=== PATIENT | male | born 1935 | race Caucasian/White ===

== ENCOUNTER 2016-09-03 10:48 | Emergency (ER) | payer OTHER, BC ==
[~2016-09-03 10:48] MED LIST: AMOXICILLIN/CL875 MG PO; COMBIVENT RESPIMAT; FOLIC ACID1 MG PO; HYCET1 ML PO; IPRATROPIUM BROMIDE/ IN; METOPROLOL TART25 MG PO; MULTIVITAMIN1 TAB PO; PRILOSEC20 MG PO; QVAR40 MCG IN; SLOW-MAG PO; VITAMIN B-1100 M1 PO; [UNRECOGNIZED DRUG - OTHER] PO
--- NOTE | 2016-09-03 12:12 | ED NURSING NOTES ---
Clinical Report - Nurses [facility] [address] [place] [address] 09/03/2016 10:48 Patient: LUI SULLIVAN TRIAGE Triage time 10:50. Acuity: LEVEL 3. Chief Complaint: SHORTNESS OF BREATH and (02 dependant). Alert. No acute distress. SEPSIS SCREEN: Sepsis Screen: negative. Negative (no infection suspected/documented). KAUSHAL COMA SCORE: Kaushal Coma Scale: 14- eyes open spontaneously (4); best verbal response- disoriented (4); best motor response- obeys commands (6). --11:11 Hayley Osborne R.N. 10:59 09/03/16. BP: 154/78. HR: 81. RR: 20. O2 saturation: 99% on room air. Temp: 97.9 F. Pain level now: 0/10. --11:11 Hayley Osborne R.N. 10:59 09/03/16. BP: 154/78. HR: 81. RR: 20. O2 saturation: 99% on room air. Temp: 97.9 F. Pain level now: 0/10. --11:11 Hayley Osborne R.N. Weight: 72.5 kg estimated. Height/Length: 68 inches. BMI: 24.3. --11:05 Hayley Osborne R.N. Medications Albuterol Sulfate Inhalation 2 puffs, PRN. Alendronate Sodium Oral (Tablet 70 mg) 1 tablet, weekly. Combivent Respimat Inhalation 2 puffs , every 4 hrs PRN. Daughter repots - pt also on antibiotics and a med for diarrhea . Folic Acid Oral 1 mg, daily. Ipratropium-Albuterol Inhalation (Solution 0.5-2.5 (3) mg/3mL) 3ml, every 4 hrs PRN. Metoprolol Tartrate Oral 25 mg, 2 x day. --11:07 Hayley Osborne R.N. Multivitamin Oral 1 tab, daily. Omeprazole Oral 20 mg, daily. Qvar Inhalation (Aerosol Solution 40 mcg/act) 2 puffs , 2 x daily. Slow-Mag Oral 1 tab , 2 x daily. Vitamin B-1 Oral (Tablet 100 mg) 1 tablet, daily. --11:07 Hayley Osborne R.N. Acetaminophen Oral 1,000 mg, 4x a day as needed. --11:08 Hayley Osborne R.N. Bacid Oral 1 tab bid . --11:09 Hayley Osborne R.N. Vitamin B-1 day . --11:10 Hayley Osborne R.N. Aricept Oral 5 mg, daily. --11:11 Hayley Osborne R.N. Medication/allergy information source: the patient and patient's detention record. --11:11 Hayley Osborne R.N. Allergies Nitrofurantoin. --11:07 Hayley Osborne R.N. History Arrived by EMS. Historian: patient. Primary physician (nixon). This started just prior to arrival. Treatment GLOBAL MARKETING COORDINATOR: EMS treatment GLOBAL MARKETING COORDINATOR verbally communicated. See EMS report. Oxygen administered by nasal cannula and at 2 liters/minute. BP: 195 / 91 manual. HR: 81. RR: 20. Temp: 97.9 oral. O2 saturation: (at 2 liters/minute). End tidal CO2: 32 mm Hg. Upon arrival patient awake. PAST MEDICAL HX: Immunizations: up-to-date. SOCIAL HX: Smoker- current status unknown. No alcohol use or drug use. FALL RISK ASSESSMENT: Fall risk assessment completed. No fall risk identified. NUTRITIONAL RISK ASSESSMENT: The nutritional risk assessment revealed no deficiencies. FUNCTIONAL ASSESSMENT: Functional assessment performed: requires assistance with the activities of daily living; uses wheelchair and walker; wears glasses; cognitive impairment- senile dementia. The patient is under physician care for his functional impairment. LEARNING NEEDS ASSESSMENT: A learning needs assessment was performed. Factors affecting the patient's ability to learn include cognitive limitations. SKIN INTEGRITY ASSESSMENT: Skin integrity risk assessment completed. No skin integrity risk identified. --11:11 Hayley Osborne R.N. PROBLEMS: GI Bleeding. COPD - Chronic Obstructive Pulmonary Disease. Sinus Tachycardia. Alcohol Withdrawal. Pneumonia. Herpes Zoster. Vomiting. Dehydration. Hyperlipidemia. Cancer. Hypokalemia. Anemia. Pneumothorax. Abrasion(s). Hypertension. --11:03 Hayley Osborne R.N. ADDITIONAL SURGERIES: Adenoidectomy. Cataract Surgery. Prostatectomy. Radiation tx for lung . Tonsillectomy. TURP - Trans Urethral Resection of Prostate. --11:03 Hayley Osborne R.N. Interventions ID band on patient. To room. --11:11 Hayley Osborne R.N. PHYSICAL ASSESSMENT To room via stretcher. Patient gowned. GENERAL / NEURO / PSYCH: Alert. Appears in no acute distress. The patient is disoriented to time and situation. HEENT: Mucous membranes are pink. RESPIRATORY: Mild respiratory distress. The patient can speak in full sentences. CVS: Capillary refill less than 2 seconds. GI / : Abdomen nontender. SKIN: Skin is warm and dry. Normal skin turgor. --11:12 Hayley Osborne R.N. NURSING PROGRESS NOTES Pulse oximeter and NIBP monitor placed on patient; monitor alarms on. Patient gowned. Head of bed elevated. Two patient identifiers checked. Call light placed in reach. Side rails up x 2. Bed placed in lowest position. Brakes of bed on. Patient ready for evaluation. --11:12 Hayley Osborne R.N. 11:39 09/03/16. BP: 164/76 taken on the left arm, while sitting. HR: 80. RR: 20. O2 saturation: 99% on room air. --11:40 Hayley Osborne R.N. DISPOSITION / DISCHARGE 11:50. Condition at departure: improved. No learning barriers present. Discharge instructions provided and reviewed with the patient and family. Family verbalized understanding. Written instructions provided in Portuguese. The patient was discharged to the detention and accompanied by family. He left the Emergency Department in a wheelchair and via private vehicle. Family member driving. Medication list reviewed and validated. --14:06 Hayley Osborne R.N. 11:39 09/03/16. BP: 164/76 taken on the left arm, while sitting. HR: 80. RR: 20. O2 saturation: 99% on room air. 10:59 09/03/16. BP: 154/78. HR: 81. RR: 20. O2 saturation: 99% on room air. Temp: 97.9 F. Pain level now: 0/10. --14:06 Hayley Osborne R.N. Locked/Released at 09/03/2016 14:06 by Hayley Osborne R.N.
--- NOTE | 2016-09-03 12:12 | ED CLINICAL REPORT ---
Clinical Report - Physicians/Mid Levels [facility] [address] [place] [address] 09/03/2016 10:48 Patient: LUI SULLIVAN Time Seen: 10:59. Arrived- By ambulance. Historian- patient, EMS personnel and daughter. History limited by dementia. HISTORY OF PRESENT ILLNESS Chief Complaint: CHANGED MENTAL STATUS and CONFUSION. This started last night and is now gone. It was abrupt in onset and has been intermittent and waxing/waning. The patient has been confused. (the patient's daughter reports that he has a long-standing diagnosis of dementia. In the recent pastshe says that he becomes more confused at night frequently call her saying things such as "where is my car?" She says that he has not had a car in years. She feels that this has been getting worse recently. She says the [facility] that hewas doing this sort of thing last night. Apparently this morning he became very anxious and was breathing very fast and acting confused and they called for an ambulance. Both the patient and his daughter say that he is at his normal baseline. He says that he is feeling well he denies any pain, denies any changes in his breathing or any other concerns.). halfway resident. History of chronic dementia. No weakness, numbness or recent fall. No difficulty walking. The patient is usually alert but confused. Similar symptoms previously: Milder. REVIEW OF SYSTEMS No chills, fever, sweats, calf pain or chest pain. No cough, difficulty breathing, pedal edema, palpitations or abdominal pain. No constipation, diarrhea, nausea, vomiting or urinary problems. All systems otherwise negative, except as recorded above. PAST HISTORY ( PCP - [facility]). Problems: GI Bleeding. COPD - Chronic Obstructive Pulmonary Disease. Sinus Tachycardia. Alcohol Withdrawal. Pneumonia. Herpes Zoster. Vomiting. Dehydration. Hyperlipidemia. Cancer. Hypokalemia. Anemia. Pneumothorax. Abrasion(s). Hypertension. Additional Surgeries: Adenoidectomy. Cataract Surgery. Prostatectomy. Radiation tx for lung . Tonsillectomy. TURP - Trans Urethral Resection of Prostate. Medications: Aricept Oral 5 mg, daily. Vitamin B-1 day . Bacid Oral 1 tab bid . Acetaminophen Oral 1,000 mg, 4x a day as needed. Multivitamin Oral 1 tab, daily. Omeprazole Oral 20 mg, daily. Qvar Inhalation (Aerosol Solution 40 mcg/act) 2 puffs , 2 x daily. Slow-Mag Oral 1 tab , 2 x daily. Vitamin B-1 Oral (Tablet 100 mg) 1 tablet, daily. Albuterol Sulfate Inhalation 2 puffs, PRN. Alendronate Sodium Oral (Tablet 70 mg) 1 tablet, weekly. Combivent Respimat Inhalation 2 puffs , every 4 hrs PRN. Folic Acid Oral 1 mg, daily. Ipratropium-Albuterol Inhalation (Solution 0.5-2.5 (3) mg/3mL) 3ml, every 4 hrs PRN. Metoprolol Tartrate Oral 25 mg, 2 x day. Allergies: Nitrofurantoin. SOCIAL HISTORY Former smoker, end date 1996. No alcohol use or drug use. Resides in a fci. FAMILY HISTORY Denies family medical history. ADDITIONAL NOTES The nursing notes have been reviewed. PHYSICAL EXAM Vital Signs: 09/03/2016 10:59 BP: 154/78. HR: 81. RR: 20. O2 saturation: 99%. Temp: 97.9 F. Pain level now: 0/10. Have been reviewed. Appearance: Alert. No acute distress. He is disoriented and confused. Eyes: Pupils equal, round and reactive to light. ENT: Moist mucous membranes. Pharynx normal. Neck: Normal inspection. Neck supple. No meningeal signs or carotid bruit. (kyphotic). CVS: Normal heart rate and rhythm. Heart sounds normal. Respiratory: Decreased air movement. No rales, wheezes or rhonchi. Abdomen: Soft and nontender. No organomegaly. Back: (kyphotic). Skin: Skin warm and dry. Normal skin color. Normal skin turgor. Extremities: Extremities exhibit normal ROM. No calf tenderness. No lower extremity edema. Neuro: Alert. Mildly altered mental status: confused and disoriented to place and time. Eyes open spontaneously. Best verbal response: disoriented. Best motor response: obeys commands. The patient is disoriented. Mood/affect normal. Speech normal. No motor deficit. No sensory deficit. PROGRESS AND PROCEDURES Course of Care: Patient is stable. Patient/family counseled. Old medical records reviewed. Disposition: Discharged. Condition: stable. CLINICAL IMPRESSION Chronic dementia with behavioral disturbance. Anxiety reaction. INSTRUCTIONS (Talk with Dr. Segura about long-term plans regarding the management of Mister Sullivan's "sundowning" as discussed.). Warnings: Further evaluation is necessary. GENERAL WARNINGS: Return or contact your physician immediately if your condition worsens or changes unexpectedly, if not improving as expected, or if other problems arise. Your Current Medications: CONTINUE TAKING THE FOLLOWING MEDICATIONS: Acetaminophen Oral : 1,000 mg 4x a day, prn. Albuterol Sulfate Inhalation : 2 puffs PRN. Alendronate Sodium Oral : Tablet 70 mg, 1 tablet weekly. Aricept Oral : 5 mg daily. Bacid Oral : 1 tab bid. Combivent Respimat Inhalation : 2 puffs every 4 hrs PRN. Folic Acid Oral : 1 mg daily. Ipratropium-Albuterol Inhalation : Solution 0.5-2.5 (3) mg/3mL, 3ml every 4 hrs PRN. Metoprolol Tartrate Oral : 25 mg 2 x day. Multivitamin Oral : 1 tab daily. Omeprazole Oral : 20 mg daily. Qvar Inhalation : Aerosol Solution 40 mcg/act, 2 puffs 2 x daily. Slow-Mag Oral : 1 tab 2 x daily. Vitamin B-1 day *. Vitamin B-1 Oral : Tablet 100 mg, 1 tablet daily. Understanding of the discharge instructions verbalized by family. Follow-up with: Farooq Segura MD, [facility], , [address] [place] [address] Follow up in seven days. Call for an appointment. (Electronically signed by Davy Nicole MD 09/03/2016 15:02)
--- NOTE | 2016-09-03 12:12 | ED NURSING NOTES ---
Clinical Report - Nurses [facility] [address] [place] [address] 09/03/2016 10:48 Patient: LUI SULLIVAN TRIAGE Triage time 10:50. Acuity: LEVEL 3. Chief Complaint: SHORTNESS OF BREATH and (02 dependant). Alert. No acute distress. SEPSIS SCREEN: Sepsis Screen: negative. Negative (no infection suspected/documented). KAUSHAL COMA SCORE: Kaushal Coma Scale: 14- eyes open spontaneously (4); best verbal response- disoriented (4); best motor response- obeys commands (6). --11:11 Hayley Osborne R.N. 10:59 09/03/16. BP: 154/78. HR: 81. RR: 20. O2 saturation: 99% on room air. Temp: 97.9 F. Pain level now: 0/10. --11:11 Hayley Osborne R.N. 10:59 09/03/16. BP: 154/78. HR: 81. RR: 20. O2 saturation: 99% on room air. Temp: 97.9 F. Pain level now: 0/10. --11:11 Hayley Osborne R.N. Weight: 72.5 kg estimated. Height/Length: 68 inches. BMI: 24.3. --11:05 Hayley Osborne R.N. Medications Albuterol Sulfate Inhalation 2 puffs, PRN. Alendronate Sodium Oral (Tablet 70 mg) 1 tablet, weekly. Combivent Respimat Inhalation 2 puffs , every 4 hrs PRN. Daughter repots - pt also on antibiotics and a med for diarrhea . Folic Acid Oral 1 mg, daily. Ipratropium-Albuterol Inhalation (Solution 0.5-2.5 (3) mg/3mL) 3ml, every 4 hrs PRN. Metoprolol Tartrate Oral 25 mg, 2 x day. --11:07 Hayley Osborne R.N. Multivitamin Oral 1 tab, daily. Omeprazole Oral 20 mg, daily. Qvar Inhalation (Aerosol Solution 40 mcg/act) 2 puffs , 2 x daily. Slow-Mag Oral 1 tab , 2 x daily. Vitamin B-1 Oral (Tablet 100 mg) 1 tablet, daily. --11:07 Hayley Osborne R.N. Acetaminophen Oral 1,000 mg, 4x a day as needed. --11:08 Hayley Osborne R.N. Bacid Oral 1 tab bid . --11:09 Hayley Osborne R.N. Vitamin B-1 day . --11:10 Hayley Osborne R.N. Aricept Oral 5 mg, daily. --11:11 Hayley Osborne R.N. Medication/allergy information source: the patient and patient's jail record. --11:11 Hayley Osborne R.N. Allergies Nitrofurantoin. --11:07 Hayley Osborne R.N. History Arrived by EMS. Historian: patient. Primary physician (nixon). This started just prior to arrival. Treatment SALESPERSON BURIAL NEEDS: EMS treatment SALESPERSON BURIAL NEEDS verbally communicated. See EMS report. Oxygen administered by nasal cannula and at 2 liters/minute. BP: 195 / 91 manual. HR: 81. RR: 20. Temp: 97.9 oral. O2 saturation: (at 2 liters/minute). End tidal CO2: 32 mm Hg. Upon arrival patient awake. PAST MEDICAL HX: Immunizations: up-to-date. SOCIAL HX: Smoker- current status unknown. No alcohol use or drug use. FALL RISK ASSESSMENT: Fall risk assessment completed. No fall risk identified. NUTRITIONAL RISK ASSESSMENT: The nutritional risk assessment revealed no deficiencies. FUNCTIONAL ASSESSMENT: Functional assessment performed: requires assistance with the activities of daily living; uses wheelchair and walker; wears glasses; cognitive impairment- senile dementia. The patient is under physician care for his functional impairment. LEARNING NEEDS ASSESSMENT: A learning needs assessment was performed. Factors affecting the patient's ability to learn include cognitive limitations. SKIN INTEGRITY ASSESSMENT: Skin integrity risk assessment completed. No skin integrity risk identified. --11:11 Hayley Osborne R.N. PROBLEMS: GI Bleeding. COPD - Chronic Obstructive Pulmonary Disease. Sinus Tachycardia. Alcohol Withdrawal. Pneumonia. Herpes Zoster. Vomiting. Dehydration. Hyperlipidemia. Cancer. Hypokalemia. Anemia. Pneumothorax. Abrasion(s). Hypertension. --11:03 Hayley Osborne R.N. ADDITIONAL SURGERIES: Adenoidectomy. Cataract Surgery. Prostatectomy. Radiation tx for lung . Tonsillectomy. TURP - Trans Urethral Resection of Prostate. --11:03 Hayley Osborne R.N. Interventions ID band on patient. To room. --11:11 Hayley Osborne R.N. PHYSICAL ASSESSMENT To room via stretcher. Patient gowned. GENERAL / NEURO / PSYCH: Alert. Appears in no acute distress. The patient is disoriented to time and situation. HEENT: Mucous membranes are pink. RESPIRATORY: Mild respiratory distress. The patient can speak in full sentences. CVS: Capillary refill less than 2 seconds. GI / : Abdomen nontender. SKIN: Skin is warm and dry. Normal skin turgor. --11:12 Hayley Osborne R.N. NURSING PROGRESS NOTES Pulse oximeter and NIBP monitor placed on patient; monitor alarms on. Patient gowned. Head of bed elevated. Two patient identifiers checked. Call light placed in reach. Side rails up x 2. Bed placed in lowest position. Brakes of bed on. Patient ready for evaluation. --11:12 Hayley Osborne R.N. 11:39 09/03/16. BP: 164/76 taken on the left arm, while sitting. HR: 80. RR: 20. O2 saturation: 99% on room air. --11:40 Hayley Osborne R.N. DISPOSITION / DISCHARGE 11:50. Condition at departure: improved. No learning barriers present. Discharge instructions provided and reviewed with the patient and family. Family verbalized understanding. Written instructions provided in Portuguese. The [facility] and accompanied by family. He left the Emergency Department in a wheelchair and via private vehicle. Family member driving. Medication list reviewed and validated. --14:06 Hayley Osborne R.N. 11:39 09/03/16. BP: 164/76 taken on the left arm, while sitting. HR: 80. RR: 20. O2 saturation: 99% on room air. 10:59 09/03/16. BP: 154/78. HR: 81. RR: 20. O2 saturation: 99% on room air. Temp: 97.9 F. Pain level now: 0/10. --14:06 Hayley Osborne R.N. Locked/Released at 09/03/2016 14:06 by Hayley Osborne R.N.
--- NOTE | 2016-09-03 12:12 | ED CLINICAL REPORT ---
Clinical Report - Physicians/Mid Levels [facility] [address] [place] [address] 09/03/2016 10:48 Patient: LUI SULLIVAN Time Seen: 10:59. Arrived- By ambulance. Historian- patient, EMS personnel and daughter. History limited by dementia. HISTORY OF PRESENT ILLNESS Chief Complaint: CHANGED MENTAL STATUS and CONFUSION. This started last night and is now gone. It was abrupt in onset and has been intermittent and waxing/waning. The patient has been confused. (the patient's daughter reports that he has a long-standing diagnosis of dementia. In the recent pastshe says that he becomes more confused at night frequently call her saying things such as "where is my car?" She says that he has not had a car in years. She feels that this has been getting worse recently. She says the nursing staff at [facility] that hewas doing this sort of thing last night. Apparently this morning he became very anxious and was breathing very fast and acting confused and they called for an ambulance. Both the patient and his daughter say that he is at his normal baseline. He says that he is feeling well he denies any pain, denies any changes in his breathing or any other concerns.). assisted resident. History of chronic dementia. No weakness, numbness or recent fall. No difficulty walking. The patient is usually alert but confused. Similar symptoms previously: Milder. REVIEW OF SYSTEMS No chills, fever, sweats, calf pain or chest pain. No cough, difficulty breathing, pedal edema, palpitations or abdominal pain. No constipation, diarrhea, nausea, vomiting or urinary problems. All systems otherwise negative, except as recorded above. PAST HISTORY ( PCP - [facility]). Problems: GI Bleeding. COPD - Chronic Obstructive Pulmonary Disease. Sinus Tachycardia. Alcohol Withdrawal. Pneumonia. Herpes Zoster. Vomiting. Dehydration. Hyperlipidemia. Cancer. Hypokalemia. Anemia. Pneumothorax. Abrasion(s). Hypertension. Additional Surgeries: Adenoidectomy. Cataract Surgery. Prostatectomy. Radiation tx for lung . Tonsillectomy. TURP - Trans Urethral Resection of Prostate. Medications: Aricept Oral 5 mg, daily. Vitamin B-1 day . Bacid Oral 1 tab bid . Acetaminophen Oral 1,000 mg, 4x a day as needed. Multivitamin Oral 1 tab, daily. Omeprazole Oral 20 mg, daily. Qvar Inhalation (Aerosol Solution 40 mcg/act) 2 puffs , 2 x daily. Slow-Mag Oral 1 tab , 2 x daily. Vitamin B-1 Oral (Tablet 100 mg) 1 tablet, daily. Albuterol Sulfate Inhalation 2 puffs, PRN. Alendronate Sodium Oral (Tablet 70 mg) 1 tablet, weekly. Combivent Respimat Inhalation 2 puffs , every 4 hrs PRN. Folic Acid Oral 1 mg, daily. Ipratropium-Albuterol Inhalation (Solution 0.5-2.5 (3) mg/3mL) 3ml, every 4 hrs PRN. Metoprolol Tartrate Oral 25 mg, 2 x day. Allergies: Nitrofurantoin. SOCIAL HISTORY Former smoker, end date 1996. No alcohol use or drug use. Resides in a assisted. FAMILY HISTORY Denies family medical history. ADDITIONAL NOTES The nursing notes have been reviewed. PHYSICAL EXAM Vital Signs: 09/03/2016 10:59 BP: 154/78. HR: 81. RR: 20. O2 saturation: 99%. Temp: 97.9 F. Pain level now: 0/10. Have been reviewed. Appearance: Alert. No acute distress. He is disoriented and confused. Eyes: Pupils equal, round and reactive to light. ENT: Moist mucous membranes. Pharynx normal. Neck: Normal inspection. Neck supple. No meningeal signs or carotid bruit. (kyphotic). CVS: Normal heart rate and rhythm. Heart sounds normal. Respiratory: Decreased air movement. No rales, wheezes or rhonchi. Abdomen: Soft and nontender. No organomegaly. Back: (kyphotic). Skin: Skin warm and dry. Normal skin color. Normal skin turgor. Extremities: Extremities exhibit normal ROM. No calf tenderness. No lower extremity edema. Neuro: Alert. Mildly altered mental status: confused and disoriented to place and time. Eyes open spontaneously. Best verbal response: disoriented. Best motor response: obeys commands. The patient is disoriented. Mood/affect normal. Speech normal. No motor deficit. No sensory deficit. PROGRESS AND PROCEDURES Course of Care: Patient is stable. Patient/family counseled. Old medical records reviewed. Disposition: Discharged. Condition: stable. CLINICAL IMPRESSION Chronic dementia with behavioral disturbance. Anxiety reaction. INSTRUCTIONS (Talk with Dr. Segura about long-term plans regarding the management of Mister Sullivan's "sundowning" as discussed.). Warnings: Further evaluation is necessary. GENERAL WARNINGS: Return or contact your physician immediately if your condition worsens or changes unexpectedly, if not improving as expected, or if other problems arise. Your Current Medications: CONTINUE TAKING THE FOLLOWING MEDICATIONS: Acetaminophen Oral : 1,000 mg 4x a day, prn. Albuterol Sulfate Inhalation : 2 puffs PRN. Alendronate Sodium Oral : Tablet 70 mg, 1 tablet weekly. Aricept Oral : 5 mg daily. Bacid Oral : 1 tab bid. Combivent Respimat Inhalation : 2 puffs every 4 hrs PRN. Folic Acid Oral : 1 mg daily. Ipratropium-Albuterol Inhalation : Solution 0.5-2.5 (3) mg/3mL, 3ml every 4 hrs PRN. Metoprolol Tartrate Oral : 25 mg 2 x day. Multivitamin Oral : 1 tab daily. Omeprazole Oral : 20 mg daily. Qvar Inhalation : Aerosol Solution 40 mcg/act, 2 puffs 2 x daily. Slow-Mag Oral : 1 tab 2 x daily. Vitamin B-1 day *. Vitamin B-1 Oral : Tablet 100 mg, 1 tablet daily. Understanding of the discharge instructions verbalized by family. Follow-up with: Farooq Segura MD, [facility], , [address] [place] [address] Follow up in seven days. Call for an appointment. (Electronically signed by Davy Nicole MD 09/03/2016 15:02)
--- NOTE | 2016-09-03 15:03 | ED DISCHARGE INSTRUCTIONS ---
Patient: LUI SULLIVAN General Instructions [facility] VisitID: [id number] [place] [id number] 81y, M Registration Date/Time: 09/03/2016 Chronic dementia with behavioral disturbance. Anxiety reaction. INSTRUCTIONS (Talk with Dr. Segura about long-term plans regarding the management of Mister Sullivan's "sundowning" as discussed.). Warnings: Further evaluation is necessary. GENERAL WARNINGS: Return or contact your physician immediately if your condition worsens or changes unexpectedly, if not improving as expected, or if other problems arise. Your Current Medications: CONTINUE TAKING THE FOLLOWING MEDICATIONS: Acetaminophen Oral : 1,000 mg 4x a day, prn. Albuterol Sulfate Inhalation : 2 puffs PRN. Alendronate Sodium Oral : Tablet 70 mg, 1 tablet weekly. Aricept Oral : 5 mg daily. Bacid Oral : 1 tab bid. Combivent Respimat Inhalation : 2 puffs every 4 hrs PRN. Folic Acid Oral : 1 mg daily. Ipratropium-Albuterol Inhalation : Solution 0.5-2.5 (3) mg/3mL, 3ml every 4 hrs PRN. Metoprolol Tartrate Oral : 25 mg 2 x day. Multivitamin Oral : 1 tab daily. Omeprazole Oral : 20 mg daily. Qvar Inhalation : Aerosol Solution 40 mcg/act, 2 puffs 2 x daily. Slow-Mag Oral : 1 tab 2 x daily. Vitamin B-1 day *. Vitamin B-1 Oral : Tablet 100 mg, 1 tablet daily. Understanding of the discharge instructions verbalized by family. Follow-up with: Farooq Segura MD, Family Practice, , [address] [place] [phone] Follow up in seven days. Call for an appointment. ADDITIONAL INFORMATION Dementia & Caregiver Support (Advice For The Caregiver) Dementia is a chronic condition that affects the brain. It causes a gradual loss of memory. There may be trouble recognizing familiar people and places, or knowing what day it is. Memory, judgment and decision-making may also be affected. In severe cases there may be limited or no response to verbal commands. The most common form of dementia is Alzheimers disease. The cause of Alzheimer's disease is not fully understood. So far there is no cure. However, there are medicines to slow down the progress of the disease and to treat some of the symptoms. Some of the less common causes for dementia are curable. So, it is important to have a complete medical evaluation to look for conditions that can be treated. Home Care: A responsible person must be with the person who has advanced dementia at all times. He/she should not be left alone or unsupervised. In the case of advanced advanced dementia, keep medicines (prescription and [id number]) in a secure place, under the caregivers control. A person with advanced dementia should not be allowed to take their own medicines. This needs to be supervised by the caregiver. Ways to help a person with dementia: Activities:Keep to a daily routine. Changes in environment and schedules can be a source of stress for someone with dementia. Make a time schedule for common tasks of living such as bathing, dressing, taking medicines, meal times, going for walks, shopping, naps, and bed time. Communication:When speaking to a person with dementia, talk slowly and clearly. Use a gentle tone of voice. Choose short, simple words and sentences. Ask one question at a time. Do not interrupt, criticize or argue. Be calm and supportive. Use friendly facial expressions. Use pointing and touching to help communicate. If there has been loss of long-term memory, do not ask questions about past events. Instead, talk about what is happening now. Behavioral tips:Use lists, signs, family photos, clocks and calendars as memory aids. Label cabinets and drawers. Try to distract, not confront, the patient. When he/she becomes frustrated or upset, direct his/her attention to eating or some other activity of interest. Medical-Legal tips: Talk to your doctor and/or stage driver about getting a Power of [employer] for health care and for financial decisions. It is best to do this while the person can still sign legal documents and make his/her own legal decisions. Otherwise a court order will be needed. Support For The Caregiver: As the caregiver, you will need a lot of support for yourself. Caring for a person with dementia is a full-time job. It can drain your emotions and lead to frustration and anger towards the one you love. It is common to have feelings of grief over losing the familiar relationship that you once knew. As a caregiver to someone with dementia, you are at higher risk for depression, anxiety and stress reactions. Here are some tips to help you cope with being a caregiver: Learn about dementia and Alzheimers disease so you know what to expect. Find out about the resources in your community, including adult day care programs. Ask our staff for a referral to a high school social science teacher, if needed. Take care of yourself with a good diet, exercise and plenty of rest. Ask for help. Share some of the caretaking duties with family and friends. Make personal time for yourself. This is essential! Consider hiring an in-home sitter. Seek counseling and/or join a caregivers support group. Don't isolate yourself, or try to cope with this alone. In a support group, you can learn from others in a similar situation. Contact the Alzheimers Association ( ) or visit their website (www.alz.org) for more information. Follow-Up with the patients doctor or as advised by our staff. Get Prompt Medical Attention if any of the following occur: Frequent falling Refusal to eat or drink Violent behavior or behavior becomes too difficult to manage at home Increased drowsiness, or failure to respond normally Increasing headache, nausea or repeated vomiting Numbness or weakness of the face, one arm or one leg Slurred speech, trouble speaking, walking or seeing Fainting spell, dizziness or seizure Unexplained fever over 100.4 F (38.0 C) oral Stress Reaction Anxiety is the feeling we all get when we think something bad might happen. It is a normal response to stress and usually causes only a mild reaction. When anxiety becomes more severe, emotions may interfere with daily life. In some cases, you may not even be aware of what it is youre anxious about! During an anxiety reaction, you may feel like you are helpless, nervous, depressed or irritable. Your body may show signs of anxiety in many ways. You may experience dry mouth, shakiness, dizziness, weakness, trouble breathing, chest pressure, headache, nausea, diarrhea, tiredness, inability to sleep or sexual problems. Home Care: 1) Try to locate the sources of stress in your life. They may not be obvious! These may include: -- Daily hassles of life which pile up (traffic jams, missed appointments, car troubles, etc.) -- Major life changes, both good (new baby, job promotion) and bad (loss of job, loss of loved one) -- Overload: feeling that you have too many responsibilities and can't take care of all of them at once -- Feeling helpless, feeling that your problems are beyond what youre able to solve 2) Notice how your body reacts to stress. Learn to listen to your body signals. This will help you take action before the stress becomes severe. 3) When you can, do something about the source of your stress. (Avoid hassles, limit the amount of change that happens in your life at one time and take a break when you feel overloaded). 4) Unfortunately, many stressful situations cannot be avoided. It is necessary to learn HOW TO MANAGE STRESS better. There are many proven methods that will reduce your anxiety. These include simple things like exercise, good nutrition and adequate rest. Also, there are certain techniques that are helpful: relaxation and breathing exercises, visualization, biofeedback and meditation. For more information about this, consult your doctor or go to a local bookstore and review the many books and tapes available on this subject. Follow Up If you feel that your anxiety is not responding to self-help measures, contact your doctor or make an appointment with a counselor. Get Prompt Medical Attention if any of the following occur: -- Your symptoms get worse -- Chest pain or trouble breathing -- Severe headache not relieved by rest and mild pain reliever -- Rapid or irregular heartbeat, fainting Panic Attack A panic attack is an extreme fear reaction that comes on for no apparent reason. Symptoms may include pounding or racing heartbeat, shortness of breath, dizziness, weakness and sweating. There is usually a fear that something terrible will happen or that you may . The attack may last a few minutes up to a few hours. Between attacks things will seem quite normal. This condition has a psychological cause and can be treated with the help of a therapist or psychiatrist. Medication is often used and can be very helpful for this problem. Home Care: Try to identify the sources of stress in your life. It may not be obvious! These may include: Daily hassles of life which pile up (traffic jams, missed appointments, car troubles, etc.). Major life changes, both good (new baby, job promotion) and bad (loss of job, loss of loved one). Overload: feeling that you have too many responsibilities and can't take care of everything at once. Helplessness: feeling like your problems are too much for you to handle. Notice how your body reacts to stress. Learn to listen to your body signals so that you can take action before the stress becomes severe. When possible, AVOID or REDUCE THE CAUSE OF STRESS. Avoid hassles, limit the amount of change that is happening in your life at one time or take a break when you feel overloaded. Unfortunately, many stressful situations cannot be avoided. Therefore, it is necessary to LEARN HOW TO MANAGE STRESS better. There are many proven methods that work and will reduce your anxiety. These include simple things like exercise, good nutrition and adequate rest. Also, there are certain techniques that are helpful: relaxation and breathing exercises, visualization, biofeedback, meditation or simply taking some time-out to clear your mind. For more information about this, consult your doctor or go to a local bookstore and review the many books and tapes available on this subject. Follow Up with your doctor or a therapist as advised. Get Prompt Medical Attention if any of the following occur: Worsening of your symptoms to the point of feeling [id number] A change in the type of pain: if it feels different, becomes more severe, lasts longer, or begins to spread into your shoulder, arm, neck, jaw or back Shortness of breath or increased pain with breathing Increasing feeling of weakness or dizziness Fainting Cough with dark colored sputum (phlegm) or blood Fever of 100.4F (38C) or higher, or as directed by your healthcare provider Swelling, pain or redness in one leg You have been given the following additional information: Dementia, Any Type Anxiety Reaction Panic Attack (Electronically signed by Davy Nicole MD 09/03/2016 15:02)
--- NOTE | 2016-09-03 15:03 | ED MAR SUMMARY ---
..... Medication Administration Record [facility] [address] [place], [place] [id number] Patient: LUI SULLIVAN Visit ID: [id number] 81y, M Weight: 72.5 kg Height/Length: 68 in BMI: 24.3 ALLERGIES: Nitrofurantoin
--- NOTE | 2016-09-03 15:03 | ED MED RECONCILIATION SUMMARY ---
Patient: LUI SULLIVAN Medication Reconciliation Report [facility] VisitID: [id number] [address] [place] [address] 81y, M Registration Date/Time: 09/03/2016 Weight: 72.5 kg Height/Length: 68 in. BMI: 24.3 ALLERGIES: Nitrofurantoin The patient's Home Medications are listed below: CONTINUE TAKING THE FOLLOWING MEDICATIONS: Acetaminophen Oral 1,000 mg, 4x a day Albuterol Sulfate Inhalation 2 puffs, PRN Alendronate Sodium Oral (70 mg) 1 tablet, weekly Aricept Oral 5 mg, daily Bacid Oral 1 tab bid Combivent Respimat Inhalation 2 puffs , every 4 hrs PRN Folic Acid Oral 1 mg, daily Ipratropium-Albuterol Inhalation (0.5-2.5 (3) mg/3mL) 3ml, every 4 hrs PRN Metoprolol Tartrate Oral 25 mg, 2 x day Multivitamin Oral 1 tab, daily Omeprazole Oral 20 mg, daily Qvar Inhalation (40 mcg/act) 2 puffs , 2 x daily Slow-Mag Oral 1 tab , 2 x daily Vitamin B-1 day Vitamin B-1 Oral (100 mg) 1 tablet, daily The source(s) of the original Home Medication information: patient patient's long term record The following Medications were given to the patient in the Emergency Department: None. The following Medications were prescribed to the patient: None.
--- NOTE | 2016-09-03 15:03 | ED MAR SUMMARY ---
..... Medication Administration Record [facility] [address] [place], [place] [id number] Patient: LUI SULLIVAN Visit ID: [id number] 81y, M Weight: 72.5 kg Height/Length: 68 in BMI: 24.3 ALLERGIES: Nitrofurantoin
--- NOTE | 2016-09-03 15:03 | ED MED RECONCILIATION SUMMARY ---
Patient: LUI SULLIVAN Medication Reconciliation Report [facility] VisitID: [id number] [address] [place] [address] 81y, M Registration Date/Time: 09/03/2016 Weight: 72.5 kg Height/Length: 68 in. BMI: 24.3 ALLERGIES: Nitrofurantoin The patient's Home Medications are listed below: CONTINUE TAKING THE FOLLOWING MEDICATIONS: Acetaminophen Oral 1,000 mg, 4x a day Albuterol Sulfate Inhalation 2 puffs, PRN Alendronate Sodium Oral (70 mg) 1 tablet, weekly Aricept Oral 5 mg, daily Bacid Oral 1 tab bid Combivent Respimat Inhalation 2 puffs , every 4 hrs PRN Folic Acid Oral 1 mg, daily Ipratropium-Albuterol Inhalation (0.5-2.5 (3) mg/3mL) 3ml, every 4 hrs PRN Metoprolol Tartrate Oral 25 mg, 2 x day Multivitamin Oral 1 tab, daily Omeprazole Oral 20 mg, daily Qvar Inhalation (40 mcg/act) 2 puffs , 2 x daily Slow-Mag Oral 1 tab , 2 x daily Vitamin B-1 day Vitamin B-1 Oral (100 mg) 1 tablet, daily The source(s) of the original Home Medication information: patient patient's shelter record The following Medications were given to the patient in the Emergency Department: None. The following Medications were prescribed to the patient: None.
== END 2016-09-03 11:50 | disposition home or self-care (01) ==
LOC: ED SRH 10:48
DX: F03.91 Unspecified dementia, unspecified severity, with behavioral disturbance (principal); F41.1 Generalized anxiety disorder; I10 Essential (primary) hypertension; J44.9 Chronic obstructive pulmonary disease, unspecified; Z79.51 Long term (current) use of inhaled steroids; Z79.899 Other long term (current) drug therapy; Z87.891 Personal history of nicotine dependence; Z88.1 Allergy status to other antibiotic agents

== ENCOUNTER 2016-10-16 09:16 | Emergency (ER) | payer OTHER, BC ==
--- NOTE | 2016-10-16 10:43 | DIAGNOSTIC IMAGING REPORT ---
PROCEDURE: CT CERVICAL SPINE W/O CONTRAST CLINICAL INDICATION: Ground level fall. TECHNIQUE: Noncontrast axial images with sagittal and coronal reformations. COMPARISON: None. FINDINGS: There is no fracture. 1.5 mm C4-5 anterolisthesis. Severe C5-6 and C6-7 disc space narrowing with spur formation. There is mild left C3-4, moderate left C4-5, mild left C5-6 and bilateral C6-7 foraminal stenosis. No spinal stenosis. Moderate atherosclerosis of the carotid bifurcations. IMPRESSION: 1. No fracture 2. Grade 1 C4-5 anterolisthesis 3. 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 4. Results discussed with Dr. Stinson All CT scans at this facility use dose modulation, iterative reconstruction, and/or weight-based dosing when appropriate to reduce radiation dose to as low as reasonably achievable.
--- NOTE | 2016-10-16 10:45 | DIAGNOSTIC IMAGING REPORT ---
PROCEDURE: CT HEAD WITHOUT CONTRAST INDICATION: Ground level fall. TECHNIQUE: Noncontrast axial images with sagittal and coronal reformations. COMPARISON: Head CT 01/17/2015 FINDINGS: Left frontal abrasion. Moderate cortical atrophy with mild enlargement of the ventricular system. Severe white matter chronic ischemic changes. Small right thalamic lacunar infarct. There is no acute hemorrhage, CVA, mass or midline shift. Progression of expansile right maxillary sinus opacification with internal calcifications wall thickening, extending into the right ethmoid sinus. Mastoids are clear. IMPRESSION: 1. Left frontal scalp abrasion 2. Moderate atrophy with severe white matter chronic ischemic changes and small right thalamic lacunar infarct 3. Progression of expansile right maxillary sinus opacification extending to the right ethmoid sinus. Findings suggest mucocele or possibly fungal infection 4. Findings discussed with Dr. Stinson at 10:37 a.m., [place] Standard Time
--- NOTE | 2016-10-16 11:47 | DIAGNOSTIC IMAGING REPORT ---
PROCEDURE: XR CHEST 2 VIEW INDICATION: TRAUMA TECHNIQUE: PA and lateral view. COMPARISON: Chest x-ray 03/03/2016 and CTA thorax 02/29/2016. FINDINGS: Right upper lobe scar with right hemithorax volume loss. Left lung is clear. Cardiovascular structures are normal. Progression of moderately severe approximate T6 compression fracture. No change in the mild approximate T7 and T8 compression fractures. IMPRESSION: 1. Progression of moderately severe approximate T6 compression fracture. 2. Right mid lung scarring 3. Results discussed with Dr. Stinson
--- NOTE | 2016-10-16 12:20 | ED ORDER SUMMARY ---
..... Patient: LUI SULLIVAN OrderSheet [facility] VisitID: [id number] [place] [address] 81y, M Registration Date/Time: 10/16/2016 ORDER SHEET Weight: 79.3 kg (estimated) Allergies: Nitrofurantoin GENERAL ORDERS: CT Head wo Cont Urgent (09:40 10/16/2016 Emily CAMPOS) (Ack 9:48 RKraymundo) (10:21 RKaruga) CT Cervical Spine wo Cont Urgent (09:41 10/16/2016 Emily CAMPOS) (Ack 9:48 Tatiana) (10:21 RKaruga) CBC w Diff Urgent (09:41 10/16/2016 Emily CAMPOS) (Ack 9:48 RKraymundo) (10:14 MWinterer R.N.) CMP Urgent (09:41 10/16/2016 Emily CAMPOS) (Ack 9:48 RKraymundo) (10:14 MWinterer R.N.) PT with INR Urgent (09:41 10/16/2016 Emily CAMPOS) (Ack 9:48 RKjudiuga) (10:14 MWinterer R.N.) - (C COLLAR OFF UNDRESS) (10:30 10/16/2016 Emily CAMPOS) (10:31 MWinterer R.N.) Chest 2V Urgent (10:30 10/16/2016 Emily CAMPOS) (Ack 10:38 RKjudiuga) (11:10 MWinterer R.N.) - (ROAD TEST) (11:43 10/16/2016 Emily CAMPOS) (Ack 11:44 MWinterer R.N.) (12:14 MWinterer R.N.) MEDICATION ORDERS: Tdap IM 0.5 mL (NOW, per protocol) (09:52 10/16/2016 Emily CAMPOS) (Ack 10:03 MWinterer R.N.) (10:50 MWinterer R.N.) IV FLUIDS: ORDER SHEET NOTES: [Electronically signed by Marilou Carrillo R.N. (14:05 10/16/2016)] [Electronically signed by Ruben Stinson MD (07:25 10/19/2016)] [Electronically locked/signed by Marilou Carrillo R.N. (14:05 10/16/2016)]
--- NOTE | 2016-10-16 12:20 | ED NURSING NOTES ---
Clinical Report - Nurses [place] [address] [place] [address] 10/16/2016 9:17 Patient: LUI SULLIVAN TRIAGE Acuity: LEVEL 3. Chief Complaint: FALL (unwittnessed fall at [place] [facility]. Pt cannot recall how he fell.). Alert. No acute distress. SEPSIS SCREEN: Sepsis Screen. Negative (no infection suspected/documented). KAUSHAL COMA SCORE: Kaushal Coma Scale: 15- eyes open spontaneously (4); best verbal response- oriented x 4 (5); best motor response- obeys commands (6). --09:27 Marilou Carrillo R.N. 09:20 10/16/16. BP: 139/79. HR: 70. RR: 20. O2 saturation: 100% on nasal cannula at 2 liters/minute. Temp: 97.6 F (oral). --: Marilou Carrillo R.N. Weight: 79.3 kg estimated. Height/Length: 70 inches Estimated. BMI: 25.1. --09:24 Marilou Carrillo R.N. Medications Acetaminophen Oral 1,000 mg, 4x a day as needed. Alendronate Sodium Oral (Tablet 70 mg) 1 tablet, weekly. Combivent Respimat Inhalation 2 puffs , every 4 hrs PRN. Folic Acid Oral 1 mg, daily. Ipratropium-Albuterol Inhalation (Solution 0.5-2.5 (3) mg/3mL) 3ml, every 4 hrs PRN. Metoprolol Tartrate Oral 25 mg, 2 x day. Multivitamin Oral 1 tab, daily. Qvar Inhalation (Aerosol Solution 40 mcg/act) 2 puffs , 2 x daily. Vitamin B-1 day . --: Marilou Carrillo R.N. Donepezil HCl Oral (Tablet 5 mg), daily. --: Marilou Carrillo R.N. Amoxicillin Oral (Capsule 500 mg). --: Marilou Carrillo R.N. Hydrocodone-Acetaminophen Oral 7.5 mg, as needed. --: Marilou Carrillo R.N. Azithromycin Oral 250 mg. --: Marilou Carrillo R.N. Tricia-Bid Probiotic Oral. -- Marilou Carrillo R.N. Medication/allergy information source: the patient's custodial record. --: Marilou Carrillo R.N. Allergies Nitrofurantoin. --: Marilou Carrillo R.N. History Arrived by EMS. Historian: EMS. Unaccompanied. Primary physician ([place]). This occurred today. The patient had loss of consciousness of uncertain duration. He has had altered mental status. Treatment SKI MAKER: None. Oxygen administered by nasal cannula. SOCIAL HX: Smoker- current status unknown. No alcohol use or drug use. NUTRITIONAL RISK ASSESSMENT: The nutritional risk assessment revealed no deficiencies. FUNCTIONAL ASSESSMENT: Functional assessment: no impairments noted. LEARNING NEEDS ASSESSMENT: The learning needs assessment revealed no barriers. FALL RISK ASSESSMENT: Fall risk assessment completed. Risk factors identified include patient age greater than 65 years, history of fall and impairment of mobility. Fall interventions initiated. Patient placed on stretcher. Side rails up x2. Patient identified as a fall risk by ID band. Call light in reach of patient. SKIN INTEGRITY ASSESSMENT: Skin integrity risk assessment completed. No skin integrity risk identified. -- Marilou Carrillo R.N. Treatment SKI MAKER: C-collar applied. Patient placed on backboard. -- Marilou Carrillo R.N. Assessment GENERAL / NEURO / PSYCH: Alert. Appears in no acute distress. The patient is disoriented to place. Patient appears calm and cooperative. RESPIRATORY: Respirations not labored. CVS: Capillary refill less than 2 seconds. GI / : Abdomen soft. SKIN: Mucous membranes are pink. Skin is warm and dry. --: Marilou Carrillo R.N. Interventions ID band on patient. To treatment room. --: Marilou Carrillo R.N. PHYSICAL ASSESSMENT To room via stretcher. GENERAL / NEURO / PSYCH: Alert. Appears in no acute distress. The patient is disoriented to place. HEENT: Pupils equal, round and reactive to light. Head: laceration and abrasion present in the left forehead. RESPIRATORY: Respirations not labored. CVS: Capillary refill less than 2 seconds. GI / : Abdomen soft. SKIN: Skin intact. Skin is warm and dry. --09:28 Marilou Carrillo R.N. NURSING PROGRESS NOTES 09:27 10/16/16. Two patient identifiers checked. Call light placed in reach. Side rails up x 2. Bed placed in lowest position. Brakes of bed on. Patient ready for evaluation- chart flagged and ED physician notified. --09:27 Marilou Carrillo R.N. late entry - 09:30. ( Pt removed from b-board by this RN and ED physician. C-collar in place..). --10:15 Marilou Carrillo R.N. ( Patient transported back from [place] by Control Room Helper). --10:22 Lelo Mercer 10:37 10/16/16. ( C-collar removed per ED MD). --10:37 Marilou Carrillo R.N. 10:37 10/16/16. BP: 154/66. HR: 79. RR: 18. O2 saturation: 100% on room air. --10:38 Marilou Carrillo R.N. 10:50 10/16/2016 TDAP IM 0.5 mL given. (Lot#: [id number], expiration date: 02/18/2018, Steward[employer] Class: sanofi pasteur). Given in the left deltoid. Allergies verified and confirmed 5 rights. Vaccine information statement provided to the patient. --10:50 Marilou Carrillo R.N. DISPOSITION / DISCHARGE Departure time: 12:40 Oct 16 2016. Condition at departure: improved and stable. No learning barriers present. Discharge instructions provided and reviewed with the patient and family. Family verbalized understanding. Written instructions provided in Macedonian. The patient was discharged by the physician. He was discharged home and accompanied by daughter. He left the Emergency Department in a wheelchair and via private vehicle. Driving (daughter). --14:04 Marilou Carrillo R.N. 14:02 10/16/16. BP: 150/67. HR: 85. RR: 20. O2 saturation: 95% on room air. Temp: 97.9 F (oral). Pain level now: 0/10. --14:04 Marilou Carrillo R.N. Locked/Released at 10/16/2016 14:05 by Marilou Carrillo R.N.
--- NOTE | 2016-10-16 12:20 | ED CLINICAL REPORT ---
Clinical Report - Physicians/Mid Levels [facility] [address] [place] [address] 10/16/2016 9:17 Patient: LUI SULLIVAN Time Seen: 09:39. Arrived- By ambulance. Historian- patient. Evaluation limited Pt has severe short term memory deficit. HISTORY OF PRESENT ILLNESS Chief Complaint: FALL. Location of injuries- face and nose. The injury occurred just prior to arrival. Occurred at home. (Assisted living center). ( Pt had an unwitnessed fall.). Fell. The patient complains of mild pain. The patient sustained a blow to the head. No neck pain. The patient had loss of consciousness. (uncertain if there was LOC.). REVIEW OF SYSTEMS No numbness, loss of vision, chest pain, difficulty breathing or weakness. No headache, nausea, abdominal pain, fever or vomiting. He sustained skin laceration but has no pain on weight bearing. PAST HISTORY Tetanus immunization status is unknown. PHYSICAL EXAM Eyes: Pupils equal, round and reactive to light. EOM intact. Left periorbital area: superficial horizontal laceration and single puncture wound of the lateral aspect and supraorbital area of the periorbital area. No foreign body. No deformity. No entrapment of extraocular muscles or gaze palsy. ENT: Pharynx normal. Nose: mild tenderness and small abrasion. No swelling or deformity over the nose. No erythema or septal hematoma. Neck: Painless ROM. Non-tender. Respiratory: Breath sounds normal. Chest nontender. Abdomen: Soft and nontender. Bowel sounds normal. Back: Vertebral point tenderness over the upper and mid lumbar spine. Extremities: Normal inspection. Pelvis stable. Extremities atraumatic. Neuro: Mildly altered mental status. Eyes open spontaneously. Best verbal response: disoriented. Best motor response: obeys commands. (Base line). No cranial nerve deficit. No motor deficit. No sensory deficit. LABS, X-RAYS, AND EKG Chest X-ray: (PROCEDURE: XR CHEST 2 VIEW INDICATION: TRAUMA TECHNIQUE: PA and lateral view. COMPARISON: Chest x-ray 03/03/2016 and CTA thorax 02/29/2016. FINDINGS: Right upper lobe scar with right hemithorax volume loss. Left lung is clear. Cardiovascular structures are normal. Progression of moderately severe approximate T6 compression fracture. No change in the mild approximate T7 and T8 compression fractures. IMPRESSION: 1. Progression of moderately severe approximate T6 compression fracture. 2. Right mid lung scarring 3. Results discussed with Dr. Stinson Dictated by: ABE LATIF MD D: SABA;10/16/16 1146 <Electronically signed by ABE LATIF MD in OV> 10/16/16 1147). The X-rays were interpreted by the radiologist and contemporaneously by me and discussed with the radiologist. CT C-Spine: (FINDINGS: There is no fracture. 1.5 mm C4-5 anterolisthesis. Severe C5-6 and C6-7 disc space narrowing with spur formation. There is mild left C3-4, moderate left C4-5, mild left C5-6 and bilateral C6-7 foraminal stenosis. No spinal stenosis. Moderate atherosclerosis of the carotid bifurcations. IMPRESSION: 1. No fracture 2. Grade 1 C4-5 anterolisthesis 3. 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 4. Results discussed with Dr. Stinson All CT scans at this facility use dose modulation, iterative reconstruction, and/or weight-based dosing when appropriate to reduce radiation dose to as low as reasonably achievable. Dictated by: ABE LATIF MD D: SABA;10/16/16 1043 <Electronically signed by ABE LATIF MD in OV> 10/16/16 1043). The study was interpreted by the radiologist and contemporaneously by me and discussed with the radiologist. CT Head: (TECHNIQUE: Noncontrast axial images with sagittal and coronal reformations. COMPARISON: Head CT 01/17/2015 FINDINGS: Left frontal abrasion. Moderate cortical atrophy with mild enlargement of the ventricular system. Severe white matter chronic ischemic changes. Small right thalamic lacunar infarct. There is no acute hemorrhage, CVA, mass or midline shift. Progression of expansile right maxillary sinus opacification with internal calcifications wall thickening, extending into the right ethmoid sinus. Mastoids are clear. IMPRESSION: 1. Left frontal scalp abrasion 2. Moderate atrophy with severe white matter chronic ischemic changes and small right thalamic lacunar infarct 3. Progression of expansile right maxillary sinus opacification extending to the right ethmoid sinus. Findings suggest mucocele or possibly fungal infection 4. Findings discussed with Dr. Stinson at 10:37 a.m., [place] Standard Time Dictated by: ABE LATIF MD D: LANPI;10/16/16 1044 <Electronically signed by ABE LATIF MD in OV> 10/16/16 1045). Laboratory Tests: CBC w Diff: (GEOVANY: 10/16/2016 10:00) ( MsgRcvd 10/16/2016 10:08) Final results Test Result Flag Units (Reference) WHITE BLOOD COUNT 10.3 K/uL (4.5-11.5) RED BLOOD COUNT 4.36 L M/uL (4.50-5.90) HEMOGLOBIN 10.5 L gm/dL (13.5-17.5) HEMATOCRIT 33.6 L % (41.0-53.0) MEAN CELL VOLUME 77 L fL (80-100) MEAN CORPUSCULAR HGB 24 L pg (26-34) MEAN CORPUSCULAR HGB CONC 31 g/dL (31-37) RED CELL DISTRIBUTION WIDTH 17.4 H % (11.6-14.8) PLATELET COUNT 151 K/uL (150-400) NEUTROPHIL % 76.5 H % (50-75) LYMPH % 17.2 L % (25-40) MONO % 5.6 % (3-14) EOSINOPHIL % 0.6 % (0-4) BASOPHIL % 0.1 % (0-2) PT with INR: (GEOVANY: 10/16/2016 10:00) ( MsgRcvd 10/16/2016 10:21) Final results Test Result Flag Units (Reference) INR 1.0 (0.8-1.2) Low Intensity Therapy: INR 1.5-2.0 PT range 18.5-23.1Mod.Intensity Therapy: INR 2.0-3.0 PT range 23.1-31.5High Intensity Therapy: INR 2.5-3.5 PT range 27.4-35.5High Intensity Therapy 2: INR 3.0-4.0 PT range 31.5-39.3 CMP: (GEOVANY: 10/16/2016 10:00) ( MsgRcvd 10/16/2016 10:30) Final results Test Result Flag Units (Reference) GLUCOSE 98 mg/dL (70-110) BUN 12 mg/dL (7-18) CREATININE 1.0 mg/dL (0.6-1.3) Estimated GFR >60 mL/min Estimated GFR- >60 mL/min Note: Persistent reduction over 3 months in eGFR<60 mL/min/1.73 m2 defines CKD. Patients with eGFR values>=60 mL/min/1.73 m2 may also have CKD if evidence ofpersistent proteinuria. Additional information may be foundat www.[email or web address].org. SODIUM 133 L mmol/L (136-145) POTASSIUM 4.3 mmol/L (3.5-5.1) CHLORIDE 95 L mmol/L (98-107) CARBON DIOXIDE 28 mmol/L (21-32) CALCIUM 8.3 L mg/dL (8.5-10.1) TOTAL PROTEIN 6.8 g/dL (6.4-8.2) ALBUMIN 3.3 g/dL (3.3-5.0) BILIRUBIN, TOTAL 0.3 mg/dL (0.0-1.0) ALKALINE PHOSPHATASE 74 U/L (46-116) AST (SGOT) 12 L U/L (15-37) ALT (SGPT) 16 U/L (12-78) . PROGRESS AND PROCEDURES PROCEDURES (Wounds washed with water and do not require repair. L eyebrow wound is about 1.5 mm in side). Course of Care: 11:57 10/16/16. daughter here. Re exam and road test done without problem. Discussed sinus findings. PCP will need to decide if additional studies are appropriate. The thoracic compression fracture is worse radiographically but I doubt that it is much worse acutely today as he has very little problems moving. Disposition: Discharged. Condition: stable. CLINICAL IMPRESSION Multiple superficial lacerations to the forehead and nose. Back pain associated with a compression fracture of T5. Contusion. EXPANSILE MASS R MAXILLARY SINUS. INSTRUCTIONS (EVERY 2 HOUR MENTAL STATUS CHECKS FOR 24 HOURS CALL 911 IF NOT BASELINE MENTAL STATUS THE THORACIC COMPRESSION FRACTURE OLD BUT MAY BE NEWLY WORSE. HIS PCP NEEDS TO DECIDE IF ANYTHING WILL BE DONE ABOUT THE R MAXILLARY SINUS PROBLEM A TETANUS IMMUNIZATION WAS GIVEN WASH,DRY AND APPLY BACITRACIN OR NEOSPORIN TO FACE WOUNDS.). Follow-up: Follow up with your doctor in five days. Understanding of the discharge instructions verbalized by patient and family. (Electronically signed by Ruben Stinson MD 10/19/2016 7:25)
--- NOTE | 2016-10-16 12:20 | ED ORDER SUMMARY ---
..... Patient: LUI SULLIVAN [facility] VisitID: [id number] [place] [address] 81y, M Registration Date/Time: 10/16/2016 ORDER SHEET Weight: 79.3 kg (estimated) Allergies: Nitrofurantoin GENERAL ORDERS: CT Head wo Cont Urgent (09:40 10/16/2016 Emily CAMPOS) (Ack 9:48 RKraymundo) (10:21 RKaruga) CT Cervical Spine wo Cont Urgent (09:41 10/16/2016 Emily CAMPOS) (Ack 9:48 Tatiana) (10:21 RKaruga) CBC w Diff Urgent (09:41 10/16/2016 Emily CAMPOS) (Ack 9:48 RKraymundo) (10:14 MWinterer R.N.) CMP Urgent (09:41 10/16/2016 Emily CAMPOS) (Ack 9:48 RKraymundo) (10:14 MWinterer R.N.) PT with INR Urgent (09:41 10/16/2016 Emily CAMPOS) (Ack 9:48 RKjudiuga) (10:14 MWinterer R.N.) - (C COLLAR OFF UNDRESS) (10:30 10/16/2016 Emily CAMPOS) (10:31 MWinterer R.N.) Chest 2V Urgent (10:30 10/16/2016 Emily CAMPOS) (Ack 10:38 RKjudiuga) (11:10 MWinterer R.N.) - (ROAD TEST) (11:43 10/16/2016 Emily CAMPOS) (Ack 11:44 MWinterer R.N.) (12:14 MWinterer R.N.) MEDICATION ORDERS: Tdap IM 0.5 mL (NOW, per protocol) (09:52 10/16/2016 Emily CAMPOS) (Ack 10:03 MWinterer R.N.) (10:50 MWinterer R.N.) IV FLUIDS: ORDER SHEET NOTES: [Electronically signed by Marilou Carrillo R.N. (14:05 10/16/2016)] [Electronically signed by Ruben Stinson MD (07:25 10/19/2016)] [Electronically locked/signed by Marilou Carrillo R.N. (14:05 10/16/2016)]
--- NOTE | 2016-10-16 12:20 | ED NURSING NOTES ---
Clinical Report - Nurses [place] [address] [place] [address] 10/16/2016 9:17 Patient: LUI SULLIVAN TRIAGE Acuity: LEVEL 3. Chief Complaint: FALL (unwittnessed fall at [place] [facility]. Pt cannot recall how he fell.). Alert. No acute distress. SEPSIS SCREEN: Sepsis Screen. Negative (no infection suspected/documented). KAUSHAL COMA SCORE: Kaushal Coma Scale: 15- eyes open spontaneously (4); best verbal response- oriented x 4 (5); best motor response- obeys commands (6). --09:27 Marilou Carrillo R.N. 09:20 10/16/16. BP: 139/79. HR: 70. RR: 20. O2 saturation: 100% on nasal cannula at 2 liters/minute. Temp: 97.6 F (oral). --: Marilou Carrillo R.N. Weight: 79.3 kg estimated. Height/Length: 70 inches Estimated. BMI: 25.1. --09:24 Marilou Carrillo R.N. Medications Acetaminophen Oral 1,000 mg, 4x a day as needed. Alendronate Sodium Oral (Tablet 70 mg) 1 tablet, weekly. Combivent Respimat Inhalation 2 puffs , every 4 hrs PRN. Folic Acid Oral 1 mg, daily. Ipratropium-Albuterol Inhalation (Solution 0.5-2.5 (3) mg/3mL) 3ml, every 4 hrs PRN. Metoprolol Tartrate Oral 25 mg, 2 x day. Multivitamin Oral 1 tab, daily. Qvar Inhalation (Aerosol Solution 40 mcg/act) 2 puffs , 2 x daily. Vitamin B-1 day . --: Marilou Carrillo R.N. Donepezil HCl Oral (Tablet 5 mg), daily. --: Marilou Carrillo R.N. Amoxicillin Oral (Capsule 500 mg). --: Marilou Carrillo R.N. Hydrocodone-Acetaminophen Oral 7.5 mg, as needed. --: Marilou Carrillo R.N. Azithromycin Oral 250 mg. --: Marilou Carrillo R.N. Tricia-Bid Probiotic Oral. -- Marilou Carrillo R.N. Medication/allergy information source: the patient's assisted record. --: Marilou Carrillo R.N. Allergies Nitrofurantoin. --: Marilou Carrillo R.N. History Arrived by EMS. Historian: EMS. Unaccompanied. Primary physician ([place]). This occurred today. The patient had loss of consciousness of uncertain duration. He has had altered mental status. Treatment EXPANSION JOINT BUILDER: None. Oxygen administered by nasal cannula. SOCIAL HX: Smoker- current status unknown. No alcohol use or drug use. NUTRITIONAL RISK ASSESSMENT: The nutritional risk assessment revealed no deficiencies. FUNCTIONAL ASSESSMENT: Functional assessment: no impairments noted. LEARNING NEEDS ASSESSMENT: The learning needs assessment revealed no barriers. FALL RISK ASSESSMENT: Fall risk assessment completed. Risk factors identified include patient age greater than 65 years, history of fall and impairment of mobility. Fall interventions initiated. Patient placed on stretcher. Side rails up x2. Patient identified as a fall risk by ID band. Call light in reach of patient. SKIN INTEGRITY ASSESSMENT: Skin integrity risk assessment completed. No skin integrity risk identified. -- Marilou Carrillo R.N. Treatment EXPANSION JOINT BUILDER: C-collar applied. Patient placed on backboard. -- Marilou Carrillo R.N. Assessment GENERAL / NEURO / PSYCH: Alert. Appears in no acute distress. The patient is disoriented to place. Patient appears calm and cooperative. RESPIRATORY: Respirations not labored. CVS: Capillary refill less than 2 seconds. GI / : Abdomen soft. SKIN: Mucous membranes are pink. Skin is warm and dry. --: Marilou Carrillo R.N. Interventions ID band on patient. To treatment room. --: Marilou Carrillo R.N. PHYSICAL ASSESSMENT To room via stretcher. GENERAL / NEURO / PSYCH: Alert. Appears in no acute distress. The patient is disoriented to place. HEENT: Pupils equal, round and reactive to light. Head: laceration and abrasion present in the left forehead. RESPIRATORY: Respirations not labored. CVS: Capillary refill less than 2 seconds. GI / : Abdomen soft. SKIN: Skin intact. Skin is warm and dry. --09:28 Marilou Carrillo R.N. NURSING PROGRESS NOTES 09:27 10/16/16. Two patient identifiers checked. Call light placed in reach. Side rails up x 2. Bed placed in lowest position. Brakes of bed on. Patient ready for evaluation- chart flagged and ED physician notified. --09:27 Marilou Carrillo R.N. late entry - 09:30. ( Pt removed from b-board by this RN and ED physician. C-collar in place..). --10:15 Marilou Carrillo R.N. ( Patient transported back from [place] by Boilerhouse Mechanic). --10:22 Lelo Mercer 10:37 10/16/16. ( C-collar removed per ED MD). --10:37 Marilou Carrillo R.N. 10:37 10/16/16. BP: 154/66. HR: 79. RR: 18. O2 saturation: 100% on room air. --10:38 Marilou Carrillo R.N. 10:50 10/16/2016 TDAP IM 0.5 mL given. (Lot#: [id number], expiration date: 02/18/2018, Utility Driver: sanofi pasteur). Given in the left deltoid. Allergies verified and confirmed 5 rights. Vaccine information statement provided to the patient. --10:50 Marilou Carrillo R.N. DISPOSITION / DISCHARGE Departure time: 12:40 Oct 16 2016. Condition at departure: improved and stable. No learning barriers present. Discharge instructions provided and reviewed with the patient and family. Family verbalized understanding. Written instructions provided in Greenlandic. The patient was discharged by the physician. He was discharged home and accompanied by daughter. He left the Emergency Department in a wheelchair and via private vehicle. Driving (daughter). --14:04 Marilou Carrillo R.N. 14:02 10/16/16. BP: 150/67. HR: 85. RR: 20. O2 saturation: 95% on room air. Temp: 97.9 F (oral). Pain level now: 0/10. --14:04 Marilou Carrillo R.N. Locked/Released at 10/16/2016 14:05 by Marilou Carrillo R.N.
--- NOTE | 2016-10-19 07:25 | ED MAR SUMMARY ---
..... Medication Administration Record [facility] [address] [place] [address] Patient: LUI SULLIVAN Visit ID: [id number] 81y, M Weight: 79.3 kg Height/Length: 70 in BMI: 25.1 ALLERGIES: Nitrofurantoin Given 10:50 10/16/2016 Marilou Carrillo R.N. Medication Administered: TDAP [IM], Dose: 0.5 mL IM. Medication Ordered: Tdap IM 0.5 mL (NOW, per protocol).
--- NOTE | 2016-10-19 07:25 | ED MED RECONCILIATION SUMMARY ---
Patient: LUI SULLIVAN Medication Reconciliation Report [facility] VisitID: [id number] [address] [place] [address] 81y, M Registration Date/Time: 10/16/2016 Weight: 79.3 kg Height/Length: 70 in. BMI: 25.1 ALLERGIES: Nitrofurantoin The patient's Home Medications are listed below: THE FOLLOWING MEDICATIONS NEED TO BE RECONCILED: Acetaminophen Oral 1,000 mg, 4x a day Alendronate Sodium Oral (70 mg) 1 tablet, weekly Amoxicillin Oral (500 mg) Azithromycin Oral 250 mg Combivent Respimat Inhalation 2 puffs , every 4 hrs PRN Donepezil HCl Oral (5 mg), daily Folic Acid Oral 1 mg, daily Hydrocodone-Acetaminophen Oral 7.5 mg Ipratropium-Albuterol Inhalation (0.5-2.5 (3) mg/3mL) 3ml, every 4 hrs PRN Metoprolol Tartrate Oral 25 mg, 2 x day Multivitamin Oral 1 tab, daily Qvar Inhalation (40 mcg/act) 2 puffs , 2 x daily Tricia-Bid Probiotic Oral Vitamin B-1 day The source(s) of the original Home Medication information: patient's skilled nursing record The following Medications were given to the patient in the Emergency Department: TDAP [IM] IM 0.5 mL, administered: 10/16/2016 10:50:00 AM The following Medications were prescribed to the patient: None.
--- NOTE | 2016-10-19 07:25 | ED MAR SUMMARY ---
..... Medication Administration Record [facility] [address] [place] [address] Patient: LUI SULLIVAN Visit ID: [id number] 81y, M Weight: 79.3 kg Height/Length: 70 in BMI: 25.1 ALLERGIES: Nitrofurantoin Given 10:50 10/16/2016 Marilou Carrillo R.N. Medication Administered: TDAP [IM], Dose: 0.5 mL IM. Medication Ordered: Tdap IM 0.5 mL (NOW, per protocol).
--- NOTE | 2016-10-19 07:25 | ED DISCHARGE INSTRUCTIONS ---
Patient: LUI SULLIVAN General Instructions [facility] VisitID: [id number] [place] [address] 81y, M Registration Date/Time: 10/16/2016 Multiple superficial lacerations to the forehead and nose. Back pain associated with a compression fracture of T5. Contusion. EXPANSILE MASS R MAXILLARY SINUS. INSTRUCTIONS (EVERY 2 HOUR MENTAL STATUS CHECKS FOR 24 HOURS CALL 911 IF NOT BASELINE MENTAL STATUS THE THORACIC COMPRESSION FRACTURE OLD BUT MAY BE NEWLY WORSE. HIS PCP NEEDS TO DECIDE IF ANYTHING WILL BE DONE ABOUT THE R MAXILLARY SINUS PROBLEM A TETANUS IMMUNIZATION WAS GIVEN WASH,DRY AND APPLY BACITRACIN OR NEOSPORIN TO FACE WOUNDS.). Follow-up: Follow up with your doctor in five days. Understanding of the discharge instructions verbalized by patient and family. ADDITIONAL INFORMATION Laceration (All Closures) Alaceration is a cut through the skin. This will usually require stitches (sutures) or itzel if it is deep. Minor cuts may be treated with a surgical tape closure orskin glue. Home care The following guidelines will help you care for your laceration at home: Extremity, face, or trunk wounds Keep the wound clean and dry. If a bandage was applied and it becomes wet or dirty, replace it. Otherwise, leave it in place for the first 24 hours. If stitches or itzel were used, clean the wound daily. After removing the bandage, wash the area with soap and water. Use a wet cotton swab to loosen and remove any blood or crust that forms. The doctor may prescribe an antibiotic cream or ointment to prevent infection. Do not stop taking this medication until you have finished the prescribed course or the doctor tells you to stop. The doctor may also prescribe medications for pain. Follow the doctors instructions for taking these medications. You may remove the bandage to shower as usual after the first 24 hours, but do not soak the area in water (no swimming) until the stitches or itzel are removed. If surgical tape was used, keep the area clean and dry. If it becomes wet, blot it dry with a towel. If skin glue was used, do not scratch, rub, or pick at the adhesive film. Do not place tape directly over the film. Do not apply liquid, ointment, or creams to the wound while the film is in place. Do not clean the wound with peroxide and do not apply ointments. Avoid activities that cause heavy sweating until the film has fallen off. Protect the wound from prolonged exposure to sunlight or tanning lamps. You may shower as usual but do not soak the wound in water (no baths or swimming). The film will fall off by itself in 510 days. Scalp wounds During the first two days, you may carefully rinse your hair in the shower to remove blood, glass or dirt particles. After two days, you may shower and shampoo your hair normally. Do not soak your scalp in the tub or go swimming until the stitches or itzel have been removed. Talk with your doctor before applying any antibiotic ointment to the wound. Mouth wounds Eat soft foods to reduce pain. If the cut is inside of your mouth, clean by rinsing after each meal and at bedtime with a mixture of equal parts water and hydrogen peroxide (do not swallow!). Or, you can use a cotton swab to directly apply hydrogen peroxide onto the cut. Mouth wounds can be painful when eating. You may use an ohoc-esm-[id number] local numbing solution for pain relief. If this is not available, you may use any numbing solution for teething babies. You may apply this directly to the sores with a cotton-tip swab or with your finger. Follow-up care Follow up with your health care provider. Most skin wounds heal within ten days. Mouth and facial wounds heal within five days. However, even with proper treatment, a wound infection may sometimes occur. Therefore, you should check the wound daily for signs of infection listed below. Stitches should be removed from the face within five days; stitches and itzel should be removed from other parts of the body within 714 days. If dissolving stitches were used in the mouth, these will fall out or dissolve without the need for removal. If tape closures were used, remove them yourself if they have not fallen off after 7 days. Ifskin glue was used, the film will fall off by itself in 510 days. When to seek medical care Get prompt medical attention if any of these occur: Bleeding not controlled by direct pressure Signs of infection, including increasing pain in the wound, increasing wound redness or swelling, or pus coming from the wound Fever of 100.4F (38C) or higher, or as directed by your health care provider Stitches or itzel come apart or fall out or surgical tape falls off before 7 days Wound edges re-open Back Pain [Acute Or Chronic] Back pain is usually caused by an injury to the muscles or ligaments of the spine. Sometimes the disks that separate each bone in the spine may bulge and cause pain by pressing on a nearby nerve. Back pain may also appear after a sudden twisting/bending force (such as in a car accident), after a simple awkward movement, or lifting something heavy with poor body positioning. In either case, muscle spasm is often present and adds to the pain. Acute back pain usually gets better in one to two weeks. Back pain related to disk disease, arthritis in the spinal joints or spinal stenosis (narrowing of the spinal canal) can become chronic and last for months or years. Unless you had a physical injury (for example, a car accident or fall) X-rays are usually not ordered for the initial evaluation of back pain. If pain continues and does not respond to medical treatment, x-rays and other tests may be performed at a later time. Home Care: You may need to stay in bed the first few days. But, as soon as possible, begin sitting or walking to avoid problems with prolonged bed rest (muscle weakness, worsening back stiffness and pain, blood clots in the legs). When in bed, try to find a position of comfort. A firm mattress is best. Try lying flat on your back with pillows under your knees. You can also try lying on your side with your knees bent up towards your chest and a pillow between your knees. Avoid prolonged sitting. This puts more stress on the lower back than standing or walking. During the first two days after injury, apply an ICE PACK to the painful area for 20 minutes every 2-4 hours. This will reduce swelling and pain. HEAT (hot shower, hot bath or heating pad) works well for muscle spasm. You can start with ice, then switch to heat after two days. Some patients feel best alternating ice and heat treatments. Use the one method that feels the best to you. You may use acetaminophen (Tylenol) or ibuprofen (Motrin, Advil) to control pain, unless another pain medicine was prescribed. [NOTE: If you have chronic liver or kidney disease or ever had a stomach ulcer or GI bleeding, talk with your doctor before using these medicines.] Be aware of safe lifting methods and do not lift anything over 15 pounds until all the pain is gone. Follow Up with your doctor or this facility if your symptoms do not start to improve after one week. Physical therapy may be needed. [NOTE: If X-rays were taken, they will be reviewed by a radiologist. You will be notified of any new findings that may affect your care.] Get Prompt Medical Attention if any of the following occur: Pain becomes worse or spreads to your legs Weakness or numbness in one or both legs Loss of bowel or bladder control Numbness in the groin or genital area Scalp Contusion [W/ Wake-Up] A scalp contusion is a bruise with swelling. Sometimes there is bleeding under the skin. The swelling should start to go down within two days. Although there is no sign of a serious injury at this time, symptoms may show up later. These could be a sign of a more serious problem (bruising or bleeding in the brain). Home Care: During the next 24 hours someone must stay with you. This person should WAKE YOU EVERY TWO HOURS to check for the signs below. If you have swelling of the face or scalp, apply an ice pack (ice cubes in a plastic bag, wrapped in a towel). Do this for 20 minutes every 1-2 hours until the swelling starts to go down. You may use acetaminophen (Tylenol) or ibuprofen (Motrin, Advil) to control pain, unless another pain medicine was prescribed. [ NOTE : If you have chronic liver or kidney disease or ever had a stomach ulcer or GI bleeding, talk with your doctor before using these medicines.] For the next 24 hours: Do not take alcohol, sedatives or medicines that make you sleepy. Do not drive or operate machinery. Avoid strenuous activities. No lifting or straining. If you have had any symptoms of a concussion today (nausea, vomiting, dizziness, confusion, headache, memory loss or if you were knocked out), do not return to sports or any activity that could result in another head injury until all symptoms are gone and you have been cleared by your doctor. A second head injury before fully recovering from the first one can lead to serious brain injury. Follow Up with your doctor if symptoms are not improving after 24 hours, or as directed. [NOTE: Any X-rays or CT scans taken will be reviewed by a radiologist. You will be notified of any new findings that may affect your care.] Get Prompt Medical Attention if any of the following occur: Repeated vomiting Severe or worsening headache or dizziness Unusual drowsiness, or unable to awaken as usual Confusion or change in behavior or speech, memory loss, blurred vision Convulsion (seizure) Increasing scalp or face swelling Redness, warmth or pus from the swollen area Fluid drainage or bleeding from the nose or ears Fever of 100.4F(38C) or higher, or as directed by your healthcare provider You have been given the following additional information: Laceration, All Back Pain (Acute Or Chronic) Scalp Contusion With Wake Up (Electronically signed by Ruben Stinson MD 10/19/2016 7:25)
--- NOTE | 2016-10-19 07:25 | ED MED RECONCILIATION SUMMARY ---
Patient: LUI SULLIVAN Medication Reconciliation Report [facility] VisitID: [id number] [address] [place] [address] 81y, M Registration Date/Time: 10/16/2016 Weight: 79.3 kg Height/Length: 70 in. BMI: 25.1 ALLERGIES: Nitrofurantoin The patient's Home Medications are listed below: THE FOLLOWING MEDICATIONS NEED TO BE RECONCILED: Acetaminophen Oral 1,000 mg, 4x a day Alendronate Sodium Oral (70 mg) 1 tablet, weekly Amoxicillin Oral (500 mg) Azithromycin Oral 250 mg Combivent Respimat Inhalation 2 puffs , every 4 hrs PRN Donepezil HCl Oral (5 mg), daily Folic Acid Oral 1 mg, daily Hydrocodone-Acetaminophen Oral 7.5 mg Ipratropium-Albuterol Inhalation (0.5-2.5 (3) mg/3mL) 3ml, every 4 hrs PRN Metoprolol Tartrate Oral 25 mg, 2 x day Multivitamin Oral 1 tab, daily Qvar Inhalation (40 mcg/act) 2 puffs , 2 x daily Tricia-Bid Probiotic Oral Vitamin B-1 day The source(s) of the original Home Medication information: patient's [facility] record The following Medications were given to the patient in the Emergency Department: TDAP [IM] IM 0.5 mL, administered: 10/16/2016 10:50:00 AM The following Medications were prescribed to the patient: None.
== END 2016-10-16 12:40 | disposition home or self-care (01) ==
LOC: ED SRH 09:16
DX: S01.81XA Laceration without foreign body of other part of head, initial encounter (principal); S22.050A Wedge compression fracture of T5-T6 vertebra, initial encounter for closed fracture; J34.89 Other specified disorders of nose and nasal sinuses; W19.XXXA Unspecified fall, initial encounter; Y93.9 Activity, unspecified; Y92.009 Unspecified place in unspecified non-institutional (private) residence as the place of occurrence of the external cause; Y99.9 Unspecified external cause status; Z79.899 Other long term (current) drug therapy
CPT/HCPCS: 90074; 90100; 94060; 95059

== ENCOUNTER 2016-12-21 16:53 | Emergency (ER) | payer OTHER, BC ==
--- NOTE | 2016-12-21 17:54 | DIAGNOSTIC IMAGING REPORT ---
PROCEDURE: XR CHEST 1 VIEW INDICATION: SHORTNESS OF BREATH TECHNIQUE: Portable AP view 05:30 p.m. COMPARISON: Chest 10/16/16,Chest x-ray 03/03/2016 and CTA thorax 02/29/2016. FINDINGS: Right upper lobe scar with right hemithorax volume loss. Left lung is clear. Cardiovascular structures are normal IMPRESSION: 1. Right mid lung scarring, no acute infiltrates.
--- NOTE | 2016-12-21 20:28 | ED NURSING NOTES ---
Clinical Report - Nurses [facility] [address] [place] [address] 12/21/2016 16:54 Patient: LUI SULLIVAN TRIAGE Triage time 16:50 Dec 21 2016. Acuity: LEVEL 3. Chief Complaint: SHORTNESS OF BREATH. Alert. No acute distress. SEPSIS SCREEN: Sepsis Screen. Infection suspected/documented. Heart rate greater than 90 and respiratory rate greater than 20. Temperature not greater than 38.3 degrees C (101 degrees F) or less than 36 degrees C (96.8 degrees F). MINA COMA SCORE: Garrison Coma Scale: 15- eyes open spontaneously (4); best verbal response- oriented x 4 (5); best motor response- obeys commands (6). --17:11 Frida Sharma 17:01 12/21/16. BP: 191/76. HR: 110. RR: 26. O2 saturation: 95% on nasal cannula at 4 liters/minute. Temp: 97.9 F (oral). Pain level now: 5/10. Additional comments: Pain in back-preexisting. --17:11 Frida Sharma. Weight: 58.9 kg stated. Height/Length: 64 inches Per Patient. BMI: 22.3. --17:10 Frida Sharma. Medications Acetaminophen Oral 1,000 mg, 4x a day as needed. Alendronate Sodium Oral (Tablet 70 mg) 1 tablet, weekly. Donepezil HCl Oral (Tablet 5 mg), daily. Folic Acid Oral 1 mg, daily. Hydrocodone-Acetaminophen Oral 7.5 mg, as needed. Metoprolol Tartrate Oral 12.5 mg, 2 x day. --17:07 Frida Sharma Ipratropium-Albuterol Inhalation (Solution 0.5-2.5 (3) mg/3mL) 3ml, every 4 hrs PRN. Multivitamin Oral 1 tab, daily. Qvar Inhalation (Aerosol Solution 40 mcg/act) 2 puffs , 2 x daily. Tricia-Bid Probiotic Oral. Vitamin B-1 day . --17:07 Frida Sharma Omeprazole Oral 20 mg, daily. --17:23 Frida Sharma Oxygen at 2 LPM. --17:23 Frida Sharma The following entry was struck and corrected by Frida Sharma, 17:19 (12/21/16) Reason for correction - other(correction). <<STRICKEN ENTRY-- Metoprolol Tartrate Oral 25 mg, 2 x day. --17:07 Frida Sharma --END STRIKE>> The following entry was struck by Frida Sharma, 17:19 (12/21/16) Reason - other. <<STRICKEN ENTRY-- Combivent Respimat Inhalation 2 puffs , every 4 hrs PRN. --17:07 Frida Sharma --END STRIKE>> The following entry was struck by Frida Sharma, 17:18 (12/21/16) Reason - other. <<STRICKEN ENTRY-- Azithromycin Oral 250 mg. --17:07 Frida Sharma --END STRIKE>> The following entry was struck by Frida Sharma, 17:18 (12/21/16) Reason - other. <<STRICKEN ENTRY-- Amoxicillin Oral (Capsule 500 mg). --17:07 Frida Sharma --END STRIKE>>. (List from previous visit.). --17:11 Frida Sharma. Allergies Nitrofurantoin. --17:07 Frida Sharma. History Arrived by EMS. Historian: EMS. Accompanied by (EMS). This started just prior to arrival. He has had a cough. He has had back pain. It has been similar to previous symptoms. No fever, chills or chest pain. Treatment CITY CLERK: See EMS report. EMS treatment CITY CLERK verbally communicated. Oxygen administered by nasal cannula and at 4 liters/minute. The pre-hospital EKG appears to be a good tracing. Normal pre-hospital EKG. Temp: 97.8. O2 saturation: started at 92%, improved to 96% on 4 LPM. End tidal CO2: 30. ( EMS reports that patient had been normal for lunch today and was found sitting on the ground and SOB and "green snot in his nose." Pt has a history of dementia and has normal mentation for him, per EMS.). PAST MEDICAL HX: Chronic obstructive pulmonary disease. Immunizations: status is unknown. SOCIAL HX: Former smoker, end date 1996. No alcohol use or drug use. NUTRITIONAL RISK ASSESSMENT: The nutritional risk assessment revealed no deficiencies. FUNCTIONAL ASSESSMENT: Functional assessment: no impairments noted. LEARNING NEEDS ASSESSMENT: The learning needs assessment revealed no barriers. FALL RISK ASSESSMENT: Fall risk assessment completed. Risk factors identified include patient age greater than 65 years and impairment of cognition. Fall interventions initiated. Patient placed on stretcher. Side rails up x2. Bed in low position. Patient visible from nurses' station. Call light in reach of patient. Instructed not to get up without assistance. SKIN INTEGRITY ASSESSMENT: Skin integrity risk assessment completed. No skin integrity risk identified. --17:11 Frida Sharma. PROBLEMS: Contusion. Back Pain. Laceration. Anxiety Reaction. Dementia. GI Bleeding. COPD - Chronic Obstructive Pulmonary Disease. Sinus Tachycardia. Alcohol Withdrawal. Pneumonia. Herpes Zoster. Vomiting. Dehydration. Hyperlipidemia. Cancer. Hypokalemia. Anemia. Pneumothorax. Abrasion(s). Hypertension. --17:07 Frida Sharma. ADDITIONAL SURGERIES: Adenoidectomy. Cataract Surgery. Prostatectomy. Radiation tx for lung . Tonsillectomy. TURP - Trans Urethral Resection of Prostate. --17:07 Frida Sharma. Assessment The patient states feels the same. --17:11 Frida Sharma. Interventions ID band on patient. --17:11 Frida Sharma. 16:54 12/21/2016 Site #1 started prior to arrival by EMS via IV in the left antecubital space with an 20g angiocath. --17:04 Frida Sharma. PHYSICAL ASSESSMENT 17:12 12/21/16. To room via stretcher. Patient gowned. GENERAL / NEURO / PSYCH: Alert. Oriented X 4. Appears in no acute distress. HEENT: Mucous membranes are pink. RESPIRATORY: Moderate respiratory distress. The patient can speak a few words at a time. Chest nontender. Decreased breath sounds. No accessory muscle use. CVS: Cardiac rhythm: sinus tachycardia. Capillary refill less than 2 seconds. GI / : Abdomen soft and nontender. SKIN: Skin is warm and dry. Normal skin turgor. --17:12 Frida Sharma. NURSING PROGRESS NOTES 17:02 12/21/2016 Duoneb (Ipratropium-Albuterol) Neb TX Nebulizer 1 unit dose given. Given by the respiratory therapist. Allergies verified and confirmed 5 rights. --17:17 Scooby Cabrales, R.NHector 17:12 12/21/16. The plan of care for this patient has been created. Oxygen administered by nasal cannula at 4 liters. cut off saw tender metal, pulse oximeter and NIBP monitor placed on patient; entry level electrical engineer- Lead II and V5; monitor alarms on. Patient gowned. Head of bed elevated. Reassurance given. Two patient identifiers checked. Call light placed in reach. Side rails up x 2. Bed placed in lowest position. Brakes of bed on. Patient ready for evaluation- chart flagged and ED physician and FLOORING HELPER notified. --17:12 Frida Sharma 17:13 12/21/2016 Prednisone PO Tablets 40 mg given. Allergies verified and confirmed 5 rights. (Given by ASHLEY Mathur). --17:13 Frida Sharma EKG time: (1702). EKG was ordered, performed by a tech and shown to the ED physician. --17:24 Sonia Hurd ER Tech1 17:15 12/21/16. Patient ID band checked for patient name, birthdate and medical record number: patient confirmed. Blood samples drawn from the left antecubital space peripheral IV site with Vacutainer by nurse ; labeled in presence of the patient and sent to lab: rainbow set. Line flushed with 10 mL normal saline post blood draw. --17:26 Scooby Cabrales, R.N. 17:30 12/21/16. Portable chest x-ray performed. --17:30 Frida Sharma 18:50 12/21/16. BP: 161/55. HR: 107. O2 saturation: 99% on nasal cannula at 4 liters/minute. 18:05 12/21/16. BP: 164/64. HR: 100. RR: 22. O2 saturation: 98% on nasal cannula at 4 liters/minute. Pain level now: 5/10. --18:51 Frida Sharma 18:53 12/21/16. ( Breathalyzer= 0.234). --18:53 Frida Sharma 19:45 12/21/16. BP: 153/64. HR: 94. O2 saturation: 99% on nasal cannula at 2 liters/minute. --19:45 Frida Sharma 20:31 12/21/2016 Azithromycin PO Capsules 500 mg given. Allergies verified and confirmed 5 rights. --20:36 Frida Sharma 20:43 12/21/2016 IV Saline Lock Drip IV Discontinued. Total amount infused: 0 mL. --20:53 Frida Sharma 20:44 12/21/2016 Site #1 removed upon discharge. Catheter intact. Pressure dressing applied. --20:54 Frida Sharma. DISPOSITION / DISCHARGE 20:40 12/21/16. Condition at departure: improved. The goals identified in the patient's plan of care were met. --20:40 Frida Sharma 20:36 12/21/16. BP: 161/69. HR: 93. RR: 20. O2 saturation: 100% on nasal cannula at 2 liters/minute. Temp: 98.4 F. Pain level now: 0/10. --20:40 Frida Sharma 20:53 12/21/16. Departure time: 20:Dec 21 2016. Ability to learn limited by dementia. Discharge instructions provided and reviewed with the family. Reviewed warnings (Family verbalized awareness of warning s/sx listed in dc paperwork.). Reviewed medication(s). Prescription(s) given to the patient (Zithromax, prednisone.). Treatments reviewed. Reviewed referral to a primary care physician for followup. Patient and family verbalized understanding. Written instructions provided in Kiswahili. The patient was discharged by the physician. He was discharged to the assisted and accompanied by family. He left the Emergency Department in a wheelchair, via private vehicle and (by RN). Family member driving. --20:53 Frida Sharma. Locked/Released at 12/21/2016 21:24 by Frida Sharma,
--- NOTE | 2016-12-21 20:28 | ED ORDER SUMMARY ---
..... Patient: LUI SULLIVAN OrderSheet [facility] VisitID: [id number] [place] [address] 81y, M Registration Date/Time: 12/21/2016 ORDER SHEET Weight: 58.9 kg (stated) Allergies: Nitrofurantoin GENERAL ORDERS: ABG (G) Urgent (16:59 12/21/2016 Jc Roger) (Ack 17:00 PWeiler ER Tech1) (17:17 Aguilaelli R.N.) Chest 1V Urgent (17:05 12/21/2016 Jc Roger) (Ack 17:07 PWeiler ER Tech1) (18:08 Archie) Cardiac Panel Stat (17:05 12/21/2016 Jc Roger) (Ack 17:07 PWeiler ER Tech1) (17:16 Staci R.N.) D-Dimer Urgent (17:05 12/21/2016 Jc Roger) (Ack 17:07 PWeiler ER Tech1) (17:17 Staci R.N.) UA-Culture if indicated Urgent (17:05 12/21/2016 Jc Roger) (Ack 17:07 PWeiler ER Tech1) (Cancelled: Unable to [id number] ASchmuck) EKG - ER Stat (17:06 12/21/2016 LNations ER Tech1 per protocol) (17:07 PWeiler ER Tech1) MEDICATION ORDERS: DuoNeb Neb Tx 1 unit dose (NOW) (16:58 12/21/2016 Jc Roger) (Ack 17:16 ASchmuck) (17:17 Staci R.N.) Prednisone PO 40 mg (NOW) (16:58 12/21/2016 Jc Roger) (17:13 ASchmuck) Azithromycin PO 500 mg (NOW) (20:24 12/21/2016 cJ Roger) (Ack 20:26 ASchmuck) (20:36 ASchmuck) IV FLUIDS: IV Saline Lock (17:05 12/21/2016 Jc Roger) (17:13 ASchmuck) ORDER SHEET NOTES: [Electronically signed by Frida Sharma (21:12/21/2016)] [Electronically signed by Jr Cullen Dr. (20:43 12/22/2016)] [Electronically locked/signed by Frida Sharma (:12/21/2016)]
--- NOTE | 2016-12-21 20:28 | ED ORDER SUMMARY ---
..... Patient: LUI SULLIVAN OrderSheet [facility] VisitID: [id number] [place] [address] 81y, M Registration Date/Time: 12/21/2016 ORDER SHEET Weight: 58.9 kg (stated) Allergies: Nitrofurantoin GENERAL ORDERS: ABG (G) Urgent (16:59 12/21/2016 Jc Roger) (Ack 17:00 PWeiler ER Tech1) (17:17 Aguilaelli R.N.) Chest 1V Urgent (17:05 12/21/2016 Jc Roger) (Ack 17:07 PWeiler ER Tech1) (18:08 Archie) Cardiac Panel Stat (17:05 12/21/2016 Jc Roger) (Ack 17:07 PWeiler ER Tech1) (17:16 Staci R.N.) D-Dimer Urgent (17:05 12/21/2016 Jc Roger) (Ack 17:07 PWeiler ER Tech1) (17:17 Staci R.N.) UA-Culture if indicated Urgent (17:05 12/21/2016 Jc Roger) (Ack 17:07 PWeiler ER Tech1) (Cancelled: Unable to [id number] ASchmuck) EKG - ER Stat (17:06 12/21/2016 LNations ER Tech1 per protocol) (17:07 PWeiler ER Tech1) MEDICATION ORDERS: DuoNeb Neb Tx 1 unit dose (NOW) (16:58 12/21/2016 Jc Roger) (Ack 17:16 ASchmuck) (17:17 Staci R.N.) Prednisone PO 40 mg (NOW) (16:58 12/21/2016 Jc Roger) (17:13 ASchmuck) Azithromycin PO 500 mg (NOW) (20:24 12/21/2016 Jc Roger) (Ack 20:26 ASchmuck) (20:36 ASchmuck) IV FLUIDS: IV Saline Lock (17:05 12/21/2016 Jc Roger) (17:13 ASchmuck) ORDER SHEET NOTES: [Electronically signed by Frida Sharma (21:12/21/2016)] [Electronically signed by Jr Cullen Dr. (20:43 12/22/2016)] [Electronically locked/signed by Frida Sharma (:12/21/2016)]
--- NOTE | 2016-12-21 20:28 | ED NURSING NOTES ---
Clinical Report - Nurses [facility] [address] [place] [address] 12/21/2016 16:54 Patient: LUI SULLIVAN TRIAGE Triage time 16:50 Dec 21 2016. Acuity: LEVEL 3. Chief Complaint: SHORTNESS OF BREATH. Alert. No acute distress. SEPSIS SCREEN: Sepsis Screen. Infection suspected/documented. Heart rate greater than 90 and respiratory rate greater than 20. Temperature not greater than 38.3 degrees C (101 degrees F) or less than 36 degrees C (96.8 degrees F). MINA COMA SCORE: Redig Coma Scale: 15- eyes open spontaneously (4); best verbal response- oriented x 4 (5); best motor response- obeys commands (6). --17:11 Frida Sharma 17:01 12/21/16. BP: 191/76. HR: 110. RR: 26. O2 saturation: 95% on nasal cannula at 4 liters/minute. Temp: 97.9 F (oral). Pain level now: 5/10. Additional comments: Pain in back-preexisting. --17:11 Frida Sharma. Weight: 58.9 kg stated. Height/Length: 64 inches Per Patient. BMI: 22.3. --17:10 Frida Sharma. Medications Acetaminophen Oral 1,000 mg, 4x a day as needed. Alendronate Sodium Oral (Tablet 70 mg) 1 tablet, weekly. Donepezil HCl Oral (Tablet 5 mg), daily. Folic Acid Oral 1 mg, daily. Hydrocodone-Acetaminophen Oral 7.5 mg, as needed. Metoprolol Tartrate Oral 12.5 mg, 2 x day. --17:07 Frida Sharma Ipratropium-Albuterol Inhalation (Solution 0.5-2.5 (3) mg/3mL) 3ml, every 4 hrs PRN. Multivitamin Oral 1 tab, daily. Qvar Inhalation (Aerosol Solution 40 mcg/act) 2 puffs , 2 x daily. Tricia-Bid Probiotic Oral. Vitamin B-1 day . --17:07 Frida Sharma Omeprazole Oral 20 mg, daily. --17:23 Frida Sharma Oxygen at 2 LPM. --17:23 Frida Sharma The following entry was struck and corrected by Frida Sharma, 17:19 (12/21/16) Reason for correction - other(correction). <<STRICKEN ENTRY-- Metoprolol Tartrate Oral 25 mg, 2 x day. --17:07 Frida Sharma --END STRIKE>> The following entry was struck by Frida Sharma, 17:19 (12/21/16) Reason - other. <<STRICKEN ENTRY-- Combivent Respimat Inhalation 2 puffs , every 4 hrs PRN. --17:07 Frida Sharma --END STRIKE>> The following entry was struck by Frida Sharma, 17:18 (12/21/16) Reason - other. <<STRICKEN ENTRY-- Azithromycin Oral 250 mg. --17:07 Frida Sharma --END STRIKE>> The following entry was struck by Frida Sharma, 17:18 (12/21/16) Reason - other. <<STRICKEN ENTRY-- Amoxicillin Oral (Capsule 500 mg). --17:07 Frida Sharma --END STRIKE>>. (List from previous visit.). --17:11 Frida Sharma. Allergies Nitrofurantoin. --17:07 Frida Sharma. History Arrived by EMS. Historian: EMS. Accompanied by (EMS). This started just prior to arrival. He has had a cough. He has had back pain. It has been similar to previous symptoms. No fever, chills or chest pain. 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 EMS treatment AUTOMATION TEST ENGINEER verbally communicated. Oxygen administered by nasal cannula and at 4 liters/minute. The pre-hospital EKG appears to be a good tracing. Normal pre-hospital EKG. Temp: 97.8. O2 saturation: started at 92%, improved to 96% on 4 LPM. End tidal CO2: 30. ( EMS reports that patient had been normal for lunch today and was found sitting on the ground and SOB and "green snot in his nose." Pt has a history of dementia and has normal mentation for him, per EMS.). PAST MEDICAL HX: Chronic obstructive pulmonary disease. Immunizations: status is unknown. SOCIAL HX: Former smoker, end date 1996. No alcohol use or drug use. NUTRITIONAL RISK ASSESSMENT: The nutritional risk assessment revealed no deficiencies. FUNCTIONAL ASSESSMENT: Functional assessment: no impairments noted. LEARNING NEEDS ASSESSMENT: The learning needs assessment revealed no barriers. FALL RISK ASSESSMENT: Fall risk assessment completed. Risk factors identified include patient age greater than 65 years and impairment of cognition. Fall interventions initiated. Patient placed on stretcher. Side rails up x2. Bed in low position. Patient visible from nurses' station. Call light in reach of patient. Instructed not to get up without assistance. SKIN INTEGRITY ASSESSMENT: Skin integrity risk assessment completed. No skin integrity risk identified. --17:11 Frida Sharma. PROBLEMS: Contusion. Back Pain. Laceration. Anxiety Reaction. Dementia. GI Bleeding. COPD - Chronic Obstructive Pulmonary Disease. Sinus Tachycardia. Alcohol Withdrawal. Pneumonia. Herpes Zoster. Vomiting. Dehydration. Hyperlipidemia. Cancer. Hypokalemia. Anemia. Pneumothorax. Abrasion(s). Hypertension. --17:07 Frida Sharma. ADDITIONAL SURGERIES: Adenoidectomy. Cataract Surgery. Prostatectomy. Radiation tx for lung . Tonsillectomy. TURP - Trans Urethral Resection of Prostate. --17:07 Frida Sharma. Assessment The patient states feels the same. --17:11 Frida Sharma. Interventions ID band on patient. --17:11 Frida Sharma. 16:54 12/21/2016 Site #1 started prior to arrival by EMS via IV in the left antecubital space with an 20g angiocath. --17:04 Frida Sharma. PHYSICAL ASSESSMENT 17:12 12/21/16. To room via stretcher. Patient gowned. GENERAL / NEURO / PSYCH: Alert. Oriented X 4. Appears in no acute distress. HEENT: Mucous membranes are pink. RESPIRATORY: Moderate respiratory distress. The patient can speak a few words at a time. Chest nontender. Decreased breath sounds. No accessory muscle use. CVS: Cardiac rhythm: sinus tachycardia. Capillary refill less than 2 seconds. GI / : Abdomen soft and nontender. SKIN: Skin is warm and dry. Normal skin turgor. --17:12 Frida Sharma. NURSING PROGRESS NOTES 17:02 12/21/2016 Duoneb (Ipratropium-Albuterol) Neb TX Nebulizer 1 unit dose given. Given by the respiratory therapist. Allergies verified and confirmed 5 rights. --17:17 Scooby Cabrales, R.NHector 17:12 12/21/16. The plan of care for this patient has been created. Oxygen administered by nasal cannula at 4 liters. electronic device monitor, pulse oximeter and NIBP monitor placed on patient; electronic device monitor- Lead II and V5; monitor alarms on. Patient gowned. Head of bed elevated. Reassurance given. Two patient identifiers checked. Call light placed in reach. Side rails up x 2. Bed placed in lowest position. Brakes of bed on. Patient ready for evaluation- chart flagged and ED physician and LOGGING OPERATIONS INSPECTOR notified. --17:12 Frida Sharma 17:13 12/21/2016 Prednisone PO Tablets 40 mg given. Allergies verified and confirmed 5 rights. (Given by ASHLEY Mathur). --17:13 Frida Sharma EKG time: (1702). EKG was ordered, performed by a tech and shown to the ED physician. --17:24 Sonia Hurd ER Tech1 17:15 12/21/16. Patient ID band checked for patient name, birthdate and medical record number: patient confirmed. Blood samples drawn from the left antecubital space peripheral IV site with Vacutainer by nurse ; labeled in presence of the patient and sent to lab: rainbow set. Line flushed with 10 mL normal saline post blood draw. --17:26 Scooby Cabrales, R.N. 17:30 12/21/16. Portable chest x-ray performed. --17:30 Frida Sharma 18:50 12/21/16. BP: 161/55. HR: 107. O2 saturation: 99% on nasal cannula at 4 liters/minute. 18:05 12/21/16. BP: 164/64. HR: 100. RR: 22. O2 saturation: 98% on nasal cannula at 4 liters/minute. Pain level now: 5/10. --18:51 Frida Sharma 18:53 12/21/16. ( Breathalyzer= 0.234). --18:53 Frida Sharma 19:45 12/21/16. BP: 153/64. HR: 94. O2 saturation: 99% on nasal cannula at 2 liters/minute. --19:45 Frida Sharma 20:31 12/21/2016 Azithromycin PO Capsules 500 mg given. Allergies verified and confirmed 5 rights. --20:36 Frida Sharma 20:43 12/21/2016 IV Saline Lock Drip IV Discontinued. Total amount infused: 0 mL. --20:53 Frida Sharma 20:44 12/21/2016 Site #1 removed upon discharge. Catheter intact. Pressure dressing applied. --20:54 Frida Sharma. DISPOSITION / DISCHARGE 20:40 12/21/16. Condition at departure: improved. The goals identified in the patient's plan of care were met. --20:40 Frida Sharma 20:36 12/21/16. BP: 161/69. HR: 93. RR: 20. O2 saturation: 100% on nasal cannula at 2 liters/minute. Temp: 98.4 F. Pain level now: 0/10. --20:40 Frida Sharma 20:53 12/21/16. Departure time: 20:Dec 21 2016. Ability to learn limited by dementia. Discharge instructions provided and reviewed with the family. Reviewed warnings (Family verbalized awareness of warning s/sx listed in dc paperwork.). Reviewed medication(s). Prescription(s) given to the patient (Zithromax, prednisone.). Treatments reviewed. Reviewed referral to a primary care physician for followup. Patient and family verbalized understanding. Written instructions provided in Faroese. The patient was discharged by the physician. He was [facility] to the [facility] and accompanied by family. He left the Emergency Department in a wheelchair, via private vehicle and (by RN). Family member driving. --20:53 Frida Sharma. Locked/Released at 12/21/2016 21:24 by Frida Sharma,
--- NOTE | 2016-12-21 20:28 | ED CLINICAL REPORT ---
Clinical Report - Physicians/Mid Levels [facility] [address] [place] [address] 12/21/2016 16:54 Patient: LUI SULLIVAN Time Seen: 16:56; initial patient contact. Arrived- By private vehicle. Historian- patient. HISTORY OF PRESENT ILLNESS Chief Complaint: DYSPNEA and HISTORY OF CHRONIC OBSTRUCTIVE PULMONARY DISEASE. This started today and is still present. It was gradual in onset. The dyspnea is described as moderate. The dyspnea is worsened by cough. No improvement of dyspnea with rest or oxygen. The patient has had sputum production, a cough, wheezing and dyspnea on exertion. No fever, sweating episodes, chills or chest pain or discomfort. No calf pain, foot swelling, anxiety or palpitations. Similar symptoms previously: Many times. Recent medical care: Not recently seen/assessed. REVIEW OF SYSTEMS No nasal discharge, sinus drainage, nausea, vomiting or headache. All systems otherwise negative, except as recorded above. PAST HISTORY Contusion. Back Pain. Laceration. Anxiety Reaction. Dementia. GI Bleeding. COPD - Chronic Obstructive Pulmonary Disease. Sinus Tachycardia. Alcohol Withdrawal. Pneumonia. Herpes Zoster. Vomiting. Dehydration. Hyperlipidemia. Cancer. Hypokalemia. Anemia. Pneumothorax. Abrasion(s). Hypertension ADDITIONAL SURGERIES: Adenoidectomy. Cataract Surgery. Prostatectomy. Radiation tx for lung . Tonsillectomy. TURP -. SOCIAL HISTORY Former smoker, end date 1996. No alcohol use or drug use. ADDITIONAL NOTES The nursing notes have been reviewed. PHYSICAL EXAM Vital Signs: 12/21/2016 17:01 BP: 191/76. HR: 110. RR: 26. O2 saturation: 95%. Temp: 97.9 F. Pain level now: 5/10. Have been reviewed. Hypertensive. Tachycardic. Tachypneic. Temperature normal. Oxygen saturation normal. Appearance: Alert. No acute distress. Eyes: Eyes normal inspection. ENT: Pharynx normal. Neck: Normal inspection. No jugular venous distention. CVS: Tachycardia. Heart sounds normal. Rhythm normal. Respiratory: Moderate respiratory distress with accessory muscle use and retractions. Moderately prolonged expirations. Moderately decreased air movement diffusely over both lungs. Expiratory moderate bilateral wheezes diffusely. Skin: Skin warm and dry. Normal skin color. Extremities: No calf tenderness. No lower extremity edema. Neuro: Oriented X 3. LABS, X-RAYS, AND EKG EKG: EKG time: (1702). No acute process. No acute ischemia. Normal sinus rhythm. Rate: 99. Normal P waves. Normal STIVEN. Normal QRS complex. Normal axis. Normal ST and T waves, QT and QTc. EKG unchanged when compared with prior EKG. The study has been interpreted contemporaneously by me. The study has been independently viewed by me. The EKG appears to be a good tracing. Interpretation time: 1702. Chest X-ray: (Right mid lung scarring, no acute infiltrates.). Views: AP. Technique: good. The X-rays were independently viewed by me, interpreted by the radiologist and discussed with the radiologist. Prior films were not available for comparison. Laboratory Tests: CBC w Diff: (GEOVANY: 12/21/2016 16:00) ( MsgRcvd 12/21/2016 17:24) Final results Test Result Flag Units (Reference) WHITE BLOOD COUNT 13.5 H K/uL (4.5-11.5) RED BLOOD COUNT 4.39 L M/uL (4.50-5.90) HEMOGLOBIN 11.0 L gm/dL (13.5-17.5) HEMATOCRIT 34.6 L % (41.0-53.0) MEAN CELL VOLUME 79 L fL (80-100) MEAN CORPUSCULAR HGB 25 L pg (26-34) MEAN CORPUSCULAR HGB CONC 32 g/dL (31-37) RED CELL DISTRIBUTION WIDTH 17.9 H % (11.6-14.8) PLATELET COUNT 257 K/uL (150-400) NEUTROPHIL % 79.8 H % (50-75) LYMPH % 14.2 L % (25-40) MONO % 5.4 % (3-14) EOSINOPHIL % 0.3 % (0-4) BASOPHIL % 0.3 % (0-2) [id number]: (GEOVANY: 12/21/2016 16:00) ( MsgRcvd 12/21/2016 17:39) Final results Test Result Flag Units (Reference) D-DIMER QUANTITATIVE 0.41 ug/mLFEU (0.27-0.52) The primary value of this quantitative assay relates toits negative predictive value (i.e. exclusion) of pulmonaryembolism/deep vein thrombosis/DIC.Elevated levels of d-dimer may also occur with:, age, cancer, inflammation, liver disease,post-op, infection, hematoma, coronary disease, peripheralarteriopathy, bleeding disorders and thrombolytic treatment.Results should be correlated with other clinical andradiological data.Testing Methodology: Latex Immunoassay CHEM 13 PANEL: (GEOVANY: 12/21/2016 16:00) ( MsgRcvd 12/21/2016 17:41) Final results Test Result Flag Units (Reference) GLUCOSE 100 mg/dL (70-110) BUN 12 mg/dL (7-18) CREATININE 1.0 mg/dL (0.6-1.3) Estimated GFR >60 mL/min Estimated GFR- >60 mL/min Note: Persistent reduction over 3 months in eGFR<60 mL/min/1.73 m2 defines CKD. Patients with eGFR values>=60 mL/min/1.73 m2 may also have CKD if evidence ofpersistent proteinuria. Additional information may be foundat [email or web address].org. SODIUM 134 L mmol/L (136-145) POTASSIUM 4.4 mmol/L (3.5-5.1) CHLORIDE 98 mmol/L (98-107) CARBON DIOXIDE 27 mmol/L (21-32) CALCIUM 8.3 L mg/dL (8.5-10.1) TOTAL PROTEIN 7.1 g/dL (6.4-8.2) ALBUMIN 3.2 L g/dL (3.3-5.0) BILIRUBIN, TOTAL 0.3 mg/dL (0.0-1.0) ALKALINE PHOSPHATASE 76 U/L (46-116) AST (SGOT) 13 L U/L (15-37) ALT (SGPT) 12 U/L (12-78) MAGNESIUM 2.0 mg/dL (1.8-2.4) CPK 27 U/L (24-260) TROPONIN I <0.05 ng/mL (0.00-1.5) TROPONIN REFERENCE RANGE:<0.1 NEGATIVE0.1-1.5 INDETERMINANT>1.5 POSITIVE ABG: (GEOVANY: 12/21/2016 16:59) ( MsgRcvd 12/21/2016 17:29) Final results Test Result Flag Units (Reference) FIO2 32 % (20-101) MODIFIED EZEQUIEL TEST POSITIVE? YES ABG PATIENT RESP RATE 20 /MIN ARTERIAL BLOOD GAS SITE LR ARTERIAL BLOOD GAS pH 7.40 (7.35-7.45) ABG PCO2 41.1 mmHg (35-45) ABG PO2 93.4 H mmHg (60.0-80.0) ABG BASE EXCESS 0.7 H mmol/L (-6.0--6.0) ABG HCO3 25.6 mmol/L (20.0-26.0) ABG TCO2 26.8 mmol/L (24.0-30.0) ABG [id number] 87.8 H mmHg (7.0-14.0) *NOTE: Normal rangeis based on aFIO2 of 21% ABG SAT O2 97.4 % (95.1-100.0) ABG TOTAL HEMOGLOBIN 10.5 L g/dL (14.0-18.0) ABG O2 HEMOGLOBIN 96.0 % (95.0-100.0) ABG CARBOXYHEMOGLOBIN 1.2 % (0.5-1.5) ABG METHEMOGLOBIN 0.2 L % (0.4-1.5) ABG RHEMOGLOBIN 2.6 % . PROGRESS AND PROCEDURES Course of Care: Pt markedly better after Duoneb and Prednisone. Pt is on ATC home O2. Disposition: Discharged home in good and improved condition. Condition: good. CLINICAL IMPRESSION Acute exacerbation of COPD (emphysematous) INSTRUCTIONS Your Current Medications: CONTINUE TAKING THE FOLLOWING MEDICATIONS: Acetaminophen Oral : 1,000 mg 4x a day, prn. Alendronate Sodium Oral : Tablet 70 mg, 1 tablet weekly. Donepezil HCl Oral : Tablet 5 mg, daily. Folic Acid Oral : 1 mg daily. Hydrocodone-Acetaminophen Oral : 7.5 mg, prn. Ipratropium-Albuterol Inhalation : Solution 0.5-2.5 (3) mg/3mL, 3ml every 4 hrs PRN. Metoprolol Tartrate Oral : 12.5 mg 2 x day. Multivitamin Oral : 1 tab daily. Omeprazole Oral : 20 mg daily. Oxygen at 2 LPM*. Qvar Inhalation : Aerosol Solution 40 mcg/act, 2 puffs 2 x daily. Tricia-Bid Probiotic Oral. Vitamin B-1 day *. Prescription Medications: Zithromax 250 mg tablets: take 1 orally every day for 4 days. Total course 4 days. No refills. Substitution is permissible. (Loading dose given in the ED) Prednisone 20 mg: take 2 orally every day for 4 days. Dispense sufficient quantity. No refills. (Start on 12/22/16) Follow-up: Follow up with your doctor in about two days. Call for an appointment. Blood pressure screening was not performed during this visit because the patient has an active diagnosis of hypertension. (Electronically signed by Jr Cullen Dr. 12/22/2016 20:43)
--- NOTE | 2016-12-22 20:43 | ED MAR SUMMARY ---
..... Medication Administration Record [facility] [address] [place] [address] Patient: LUI SULLIVAN Visit ID: [id number] 81y, M Weight: 58.9 kg Height/Length: 64 in BMI: 22.3 ALLERGIES: Nitrofurantoin Given 17:02 12/21/2016 Scooby Cabrales R.N. Medication Administered: DUONEB [NEB TX] (IPRATROPIUM-ALBUTEROL), Dose: 1 unit dose Nebulizer Neb TX. Medication Ordered: DuoNeb Neb Tx 1 unit dose (NOW). Given 17:13 12/21/2016 Frida Sharma, Medication Administered: PREDNISONE [PO], Dose: 40 mg Tablets PO. Medication Ordered: Prednisone PO 40 mg (NOW). Given 20:31 12/21/2016 Frida Sharma, Medication Administered: AZITHROMYCIN [PO], Dose: 500 mg Capsules PO. Medication Ordered: Azithromycin PO 500 mg (NOW).
--- NOTE | 2016-12-22 20:43 | ED MED RECONCILIATION SUMMARY ---
Patient: LUI SULLIVAN Medication Reconciliation Report [facility] VisitID: [id number] [address] [place] [address] 81y, M Registration Date/Time: 12/21/2016 Weight: 58.9 kg Height/Length: 64 in. BMI: 22.3 ALLERGIES: Nitrofurantoin The patient's Home Medications are listed below: CONTINUE TAKING THE FOLLOWING MEDICATIONS: Acetaminophen Oral 1,000 mg, 4x a day Alendronate Sodium Oral (70 mg) 1 tablet, weekly Donepezil HCl Oral (5 mg), daily Folic Acid Oral 1 mg, daily Hydrocodone-Acetaminophen Oral 7.5 mg Ipratropium-Albuterol Inhalation (0.5-2.5 (3) mg/3mL) 3ml, every 4 hrs PRN Metoprolol Tartrate Oral 12.5 mg, 2 x day Multivitamin Oral 1 tab, daily Omeprazole Oral 20 mg, daily Oxygen at 2 LPM Qvar Inhalation (40 mcg/act) 2 puffs , 2 x daily Tricia-Bid Probiotic Oral Vitamin B-1 day The source(s) of the original Home Medication information: List from previous visit. The following Medications were given to the patient in the Emergency Department: Prednisone [PO] PO 40 mg, administered: 12/21/2016 5:13:00 PM Duoneb [Neb Tx] Neb TX 1 unit dose, administered: 12/21/2016 5:02:00 PM Azithromycin [PO] PO 500 mg, administered: 12/21/2016 8:31:00 PM The following Medications were prescribed to the patient: Zithromax 250 mg tablets: take 1 orally every day for 4 days. Total course 4 days. No refills. Substitution is permissible.(Loading dose given in the ED) -- Jr Cullen Dr. Prednisone 20 mg: take 2 orally every day for 4 days. Dispense sufficient quantity. No refills.(Start on 12/22/16) -- Jr Cullen Dr.
--- NOTE | 2016-12-22 20:43 | ED DISCHARGE INSTRUCTIONS ---
Patient: LUI SULLIVAN General Instructions [facility] VisitID: [id number] [place] [address] 81y, M Registration Date/Time: 12/21/2016 Acute exacerbation of COPD (emphysematous) INSTRUCTIONS Your Current Medications: CONTINUE TAKING THE FOLLOWING MEDICATIONS: Acetaminophen Oral : 1,000 mg 4x a day, prn. Alendronate Sodium Oral : Tablet 70 mg, 1 tablet weekly. Donepezil HCl Oral : Tablet 5 mg, daily. Folic Acid Oral : 1 mg daily. Hydrocodone-Acetaminophen Oral : 7.5 mg, prn. Ipratropium-Albuterol Inhalation : Solution 0.5-2.5 (3) mg/3mL, 3ml every 4 hrs PRN. Metoprolol Tartrate Oral : 12.5 mg 2 x day. Multivitamin Oral : 1 tab daily. Omeprazole Oral : 20 mg daily. Oxygen at 2 LPM*. Qvar Inhalation : Aerosol Solution 40 mcg/act, 2 puffs 2 x daily. Tricia-Bid Probiotic Oral. Vitamin B-1 day *. Prescription Medications: Zithromax 250 mg tablets: take 1 orally every day for 4 days. Total course 4 days. No refills. Substitution is permissible. (Loading dose given in the ED) Prednisone 20 mg: take 2 orally every day for 4 days. Dispense sufficient quantity. No refills. (Start on 12/22/16) Follow-up: Follow up with your doctor in about two days. Call for an appointment. Blood pressure screening was not performed during this visit because the patient has an active diagnosis of hypertension. ADDITIONAL INFORMATION COPD Flare Both emphysema and chronic bronchitis are forms of chronic obstructive pulmonary disease (COPD). It is most often caused by many years of smoking tobacco. Many things can make your lung disease suddenly get worse. These causes include the common cold, pneumonia, acute bronchitis, missing doses of your regular breathing medicines, or being around smoke, dust, or other air pollutants. A COPD flare may last 7 to 14 days. Your doctor may prescribe medicineto relax your airways and prevent wheezing. Your doctor may also prescribe antibiotics if he or she thinks you havea bacterial infection. Prednisone can helpease inflammation in a severe attack. Home care Here are things you can do at home: Drink lots of water or other fluids (at least 10 glasses a day) during an attack. This will loosen lung secretions and make it easier to breathe. If you have heart or kidney disease, check with your doctor before you drink extra amounts of fluids. Take prescribed medicine exactly at the times advised. If you have a hand-held inhaler or aerosol breathing medicine, don't use it more than once every 4 hours, unless your doctor tells you to. If you were givenan antibiotic or prednisone, take all of the medicine even if you are feeling better after a few days. Don't smoke. Avoid being aroundthe smoke of others. If you were given an inhaler, use it exactly as directed. If you need to use it more often than prescribed, your condition may be getting worse. Call your doctor. Follow-up care Follow up with your health care provider.If you are 65 or older or have chronic asthma or COPD, you should get a single dose of the pneumococcal vaccine and aflu shot each year. You may need a second dose of the pneumococcal vaccine if you had the first dose at a younger age. Your health care provider will let you know if you need a second dose. For all other people, the usual dose for the pneumococcal vaccine is 1 or 2 shots. Yourprovider can discuss this with you. When to seek medical care Get prompt medical attention ifany of these occur: Increased wheezing or shortness of breath Need to use your inhalers more often than usual without relief Fever of 100.4F(38C) or higher, or as directed by your health care provider Coughing up lots of dark-colored or bloody sputum (mucus) Chest pain with each breath You do not start to improve within 24 hours Azithromycin Oral tablet What is this medicine? AZITHROMYCIN (az ith jonathan MYE sin) is a macrolide antibiotic. It is used to treat or prevent certain kinds of bacterial infections. It will not work for colds, flu, or other viral infections. How should I use this medicine? Take this medicine by mouth with a full glass of water. Follow the directions on the prescription label. The tablets can be taken with food or on an empty stomach. If the medicine upsets your stomach, take it with food. Take your medicine at regular intervals. Do not take your medicine more often than directed. Take all of your medicine as directed even if you think your are better. Do not skip doses or stop your medicine early. Talk to your communications attendant regarding the use of this medicine in children. Special care may be needed. What side effects may I notice from receiving this medicine? Side effects that you should report to your doctor or health animal caregiver as soon as possible: allergic reactions like skin rash, itching or hives, swelling of the face, lips, or tongue confusion, nightmares or hallucinations dark urine difficulty breathing hearing loss irregular heartbeat or chest pain pain or difficulty passing urine redness, blistering, peeling or loosening of the skin, including inside the mouth white patches or sores in the mouth yellowing of the eyes or skin Side effects that usually do not require medical attention (report to your doctor or health animal caregiver if they continue or are bothersome): diarrhea dizziness, drowsiness headache stomach upset or vomiting tooth discoloration vaginal irritation What may interact with this medicine? Do not take this medicine with any of the following medications: lincomycin This medicine may also interact with the following medications: amiodarone antacids cyclosporine digoxin magnesium nelfinavir phenytoin warfarin What if I miss a dose? If you miss a dose, take it as soon as you can. If it is almost time for your next dose, take only that dose. Do not take double or extra doses. Where should I keep my medicine? Keep out of the reach of children. Store at room temperature between 15 and 30 degrees C (59 and 86 degrees F). Throw away any unused medicine after the expiration date. What should I tell my health care provider before I take this medicine? They need to know if you have any of these conditions: kidney disease liver disease irregular heartbeat or heart disease an unusual or allergic reaction to azithromycin, erythromycin, other macrolide antibiotics, foods, dyes, or preservatives or trying to get breast-feeding What should I watch for while using this medicine? Tell your doctor or health animal caregiver if your symptoms do not improve. Do not treat diarrhea with over the counter products. Contact your doctor if you have diarrhea that lasts more than 2 days or if it is severe and watery. This medicine can make you more sensitive to the sun. Keep out of the sun. If you cannot avoid being in the sun, wear protective clothing and use sunscreen. Do not use sun lamps or tanning beds/booths. Prednisone Oral tablet What is this medicine? PREDNISONE (PRED ni sone) is a corticosteroid. It is commonly used to treat inflammation of the skin, joints, lungs, and other organs. Common conditions treated include asthma, allergies, and arthritis. It is also used for other conditions, such as blood disorders and diseases of the adrenal glands. How should I use this medicine? Take this medicine by mouth with a glass of water. Follow the directions on the prescription label. Take this medicine with food. If you are taking this medicine once a day, take it in the morning. Do not take more medicine than you are told to take. Do not suddenly stop taking your medicine because you may develop a severe reaction. Your doctor will tell you how much medicine to take. If your doctor wants you to stop the medicine, the dose may be slowly lowered over time to avoid any side effects. Talk to your communications attendant regarding the use of this medicine in children. Special care may be needed. What side effects may I notice from receiving this medicine? Side effects that you should report to your doctor or health animal caregiver as soon as possible: allergic reactions like skin rash, itching or hives, swelling of the face, lips, or tongue changes in emotions or moods changes in vision depressed mood eye pain fever or chills, cough, sore throat, pain or difficulty passing urine increased thirst swelling of ankles, feet Side effects that usually do not require medical attention (report to your doctor or health animal caregiver if they continue or are bothersome): confusion, excitement, restlessness headache nausea, vomiting skin problems, acne, thin and shiny skin trouble sleeping weight gain What may interact with this medicine? Do not take this medicine with any of the following medications: metyrapone mifepristone This medicine may also interact with the following medications: aminoglutethimide amphotericin B aspirin and aspirin-like medicines barbiturates certain medicines for diabetes, like glipizide or glyburide cholestyramine cholinesterase inhibitors cyclosporine digoxin diuretics ephedrine female hormones, like estrogens and control pills isoniazid ketoconazole NSAIDS, medicines for pain and inflammation, like ibuprofen or naproxen phenytoin rifampin toxoids vaccines warfarin What if I miss a dose? If you miss a dose, take it as soon as you can. If it is almost time for your next dose, talk to your doctor or health animal caregiver. You may need to miss a dose or take an extra dose. Do not take double or extra doses without advice. Where should I keep my medicine? Keep out of the reach of children. Store at room temperature between 15 and 30 degrees C (59 and 86 degrees F). Protect from light. Keep container tightly closed. Throw away any unused medicine after the expiration date. What should I tell my health care provider before I take this medicine? They need to know if you have any of these conditions: Ben's syndrome diabetes glaucoma heart disease high blood pressure infection (especially a virus infection such as chickenpox, cold sores, or herpes) kidney disease liver disease mental illness myasthenia gravis osteoporosis seizures stomach or intestine problems thyroid disease an unusual or allergic reaction to lactose, prednisone, other medicines, foods, dyes, or preservatives or trying to get breast-feeding What should I watch for while using this medicine? Visit your doctor or health animal caregiver for regular checks on your progress. If you are taking this medicine over a prolonged period, carry an identification card with your name and address, the type and dose of your medicine, and your doctor's name and address. This medicine may increase your risk of getting an infection. Tell your doctor or health animal caregiver if you are around anyone with measles or chickenpox, or if you develop sores or blisters that do not heal properly. If you are going to have surgery, tell your doctor or health animal caregiver that you have taken this medicine within the last twelve months. Ask your doctor or health animal caregiver about your diet. You may need to lower the amount of salt you eat. This medicine may affect blood sugar levels. If you have diabetes, check with your doctor or health animal caregiver before you change your diet or the dose of your diabetic medicine. You have been given the following additional information: COPD Flare Azithromycin Oral tablet Prednisone Oral tablet (Electronically signed by Jr Cullen Dr. 12/22/2016 20:43)
--- NOTE | 2016-12-22 20:43 | ED DISCHARGE INSTRUCTIONS ---
Patient: LUI SULLIVAN General Instructions [facility] VisitID: [id number] [place] [address] 81y, M Registration Date/Time: 12/21/2016 Acute exacerbation of COPD (emphysematous) INSTRUCTIONS Your Current Medications: CONTINUE TAKING THE FOLLOWING MEDICATIONS: Acetaminophen Oral : 1,000 mg 4x a day, prn. Alendronate Sodium Oral : Tablet 70 mg, 1 tablet weekly. Donepezil HCl Oral : Tablet 5 mg, daily. Folic Acid Oral : 1 mg daily. Hydrocodone-Acetaminophen Oral : 7.5 mg, prn. Ipratropium-Albuterol Inhalation : Solution 0.5-2.5 (3) mg/3mL, 3ml every 4 hrs PRN. Metoprolol Tartrate Oral : 12.5 mg 2 x day. Multivitamin Oral : 1 tab daily. Omeprazole Oral : 20 mg daily. Oxygen at 2 LPM*. Qvar Inhalation : Aerosol Solution 40 mcg/act, 2 puffs 2 x daily. Tricia-Bid Probiotic Oral. Vitamin B-1 day *. Prescription Medications: Zithromax 250 mg tablets: take 1 orally every day for 4 days. Total course 4 days. No refills. Substitution is permissible. (Loading dose given in the ED) Prednisone 20 mg: take 2 orally every day for 4 days. Dispense sufficient quantity. No refills. (Start on 12/22/16) Follow-up: Follow up with your doctor in about two days. Call for an appointment. Blood pressure screening was not performed during this visit because the patient has an active diagnosis of hypertension. ADDITIONAL INFORMATION COPD Flare Both emphysema and chronic bronchitis are forms of chronic obstructive pulmonary disease (COPD). It is most often caused by many years of smoking tobacco. Many things can make your lung disease suddenly get worse. These causes include the common cold, pneumonia, acute bronchitis, missing doses of your regular breathing medicines, or being around smoke, dust, or other air pollutants. A COPD flare may last 7 to 14 days. Your doctor may prescribe medicineto relax your airways and prevent wheezing. Your doctor may also prescribe antibiotics if he or she thinks you havea bacterial infection. Prednisone can helpease inflammation in a severe attack. Home care Here are things you can do at home: Drink lots of water or other fluids (at least 10 glasses a day) during an attack. This will loosen lung secretions and make it easier to breathe. If you have heart or kidney disease, check with your doctor before you drink extra amounts of fluids. Take prescribed medicine exactly at the times advised. If you have a hand-held inhaler or aerosol breathing medicine, don't use it more than once every 4 hours, unless your doctor tells you to. If you were givenan antibiotic or prednisone, take all of the medicine even if you are feeling better after a few days. Don't smoke. Avoid being aroundthe smoke of others. If you were given an inhaler, use it exactly as directed. If you need to use it more often than prescribed, your condition may be getting worse. Call your doctor. Follow-up care Follow up with your health care provider.If you are 65 or older or have chronic asthma or COPD, you should get a single dose of the pneumococcal vaccine and aflu shot each year. You may need a second dose of the pneumococcal vaccine if you had the first dose at a younger age. Your health care provider will let you know if you need a second dose. For all other people, the usual dose for the pneumococcal vaccine is 1 or 2 shots. Yourprovider can discuss this with you. When to seek medical care Get prompt medical attention ifany of these occur: Increased wheezing or shortness of breath Need to use your inhalers more often than usual without relief Fever of 100.4F(38C) or higher, or as directed by your health care provider Coughing up lots of dark-colored or bloody sputum (mucus) Chest pain with each breath You do not start to improve within 24 hours Azithromycin Oral tablet What is this medicine? AZITHROMYCIN (az ith jonathan MYE sin) is a macrolide antibiotic. It is used to treat or prevent certain kinds of bacterial infections. It will not work for colds, flu, or other viral infections. How should I use this medicine? Take this medicine by mouth with a full glass of water. Follow the directions on the prescription label. The tablets can be taken with food or on an empty stomach. If the medicine upsets your stomach, take it with food. Take your medicine at regular intervals. Do not take your medicine more often than directed. Take all of your medicine as directed even if you think your are better. Do not skip doses or stop your medicine early. Talk to your final cleaner regarding the use of this medicine in children. Special care may be needed. What side effects may I notice from receiving this medicine? Side effects that you should report to your doctor or health manager wound care as soon as possible: allergic reactions like skin rash, itching or hives, swelling of the face, lips, or tongue confusion, nightmares or hallucinations dark urine difficulty breathing hearing loss irregular heartbeat or chest pain pain or difficulty passing urine redness, blistering, peeling or loosening of the skin, including inside the mouth white patches or sores in the mouth yellowing of the eyes or skin Side effects that usually do not require medical attention (report to your doctor or health manager wound care if they continue or are bothersome): diarrhea dizziness, drowsiness headache stomach upset or vomiting tooth discoloration vaginal irritation What may interact with this medicine? Do not take this medicine with any of the following medications: lincomycin This medicine may also interact with the following medications: amiodarone antacids cyclosporine digoxin magnesium nelfinavir phenytoin warfarin What if I miss a dose? If you miss a dose, take it as soon as you can. If it is almost time for your next dose, take only that dose. Do not take double or extra doses. Where should I keep my medicine? Keep out of the reach of children. Store at room temperature between 15 and 30 degrees C (59 and 86 degrees F). Throw away any unused medicine after the expiration date. What should I tell my health care provider before I take this medicine? They need to know if you have any of these conditions: kidney disease liver disease irregular heartbeat or heart disease an unusual or allergic reaction to azithromycin, erythromycin, other macrolide antibiotics, foods, dyes, or preservatives or trying to get breast-feeding What should I watch for while using this medicine? Tell your doctor or health manager wound care if your symptoms do not improve. Do not treat diarrhea with over the counter products. Contact your doctor if you have diarrhea that lasts more than 2 days or if it is severe and watery. This medicine can make you more sensitive to the sun. Keep out of the sun. If you cannot avoid being in the sun, wear protective clothing and use sunscreen. Do not use sun lamps or tanning beds/booths. Prednisone Oral tablet What is this medicine? PREDNISONE (PRED ni sone) is a corticosteroid. It is commonly used to treat inflammation of the skin, joints, lungs, and other organs. Common conditions treated include asthma, allergies, and arthritis. It is also used for other conditions, such as blood disorders and diseases of the adrenal glands. How should I use this medicine? Take this medicine by mouth with a glass of water. Follow the directions on the prescription label. Take this medicine with food. If you are taking this medicine once a day, take it in the morning. Do not take more medicine than you are told to take. Do not suddenly stop taking your medicine because you may develop a severe reaction. Your doctor will tell you how much medicine to take. If your doctor wants you to stop the medicine, the dose may be slowly lowered over time to avoid any side effects. Talk to your final cleaner regarding the use of this medicine in children. Special care may be needed. What side effects may I notice from receiving this medicine? Side effects that you should report to your doctor or health manager wound care as soon as possible: allergic reactions like skin rash, itching or hives, swelling of the face, lips, or tongue changes in emotions or moods changes in vision depressed mood eye pain fever or chills, cough, sore throat, pain or difficulty passing urine increased thirst swelling of ankles, feet Side effects that usually do not require medical attention (report to your doctor or health manager wound care if they continue or are bothersome): confusion, excitement, restlessness headache nausea, vomiting skin problems, acne, thin and shiny skin trouble sleeping weight gain What may interact with this medicine? Do not take this medicine with any of the following medications: metyrapone mifepristone This medicine may also interact with the following medications: aminoglutethimide amphotericin B aspirin and aspirin-like medicines barbiturates certain medicines for diabetes, like glipizide or glyburide cholestyramine cholinesterase inhibitors cyclosporine digoxin diuretics ephedrine female hormones, like estrogens and control pills isoniazid ketoconazole NSAIDS, medicines for pain and inflammation, like ibuprofen or naproxen phenytoin rifampin toxoids vaccines warfarin What if I miss a dose? If you miss a dose, take it as soon as you can. If it is almost time for your next dose, talk to your doctor or health manager wound care. You may need to miss a dose or take an extra dose. Do not take double or extra doses without advice. Where should I keep my medicine? Keep out of the reach of children. Store at room temperature between 15 and 30 degrees C (59 and 86 degrees F). Protect from light. Keep container tightly closed. Throw away any unused medicine after the expiration date. What should I tell my health care provider before I take this medicine? They need to know if you have any of these conditions: Ben's syndrome diabetes glaucoma heart disease high blood pressure infection (especially a virus infection such as chickenpox, cold sores, or herpes) kidney disease liver disease mental illness myasthenia gravis osteoporosis seizures stomach or intestine problems thyroid disease an unusual or allergic reaction to lactose, prednisone, other medicines, foods, dyes, or preservatives or trying to get breast-feeding What should I watch for while using this medicine? Visit your doctor or health manager wound care for regular checks on your progress. If you are taking this medicine over a prolonged period, carry an identification card with your name and address, the type and dose of your medicine, and your doctor's name and address. This medicine may increase your risk of getting an infection. Tell your doctor or health manager wound care if you are around anyone with measles or chickenpox, or if you develop sores or blisters that do not heal properly. If you are going to have surgery, tell your doctor or health manager wound care that you have taken this medicine within the last twelve months. Ask your doctor or health manager wound care about your diet. You may need to lower the amount of salt you eat. This medicine may affect blood sugar levels. If you have diabetes, check with your doctor or health manager wound care before you change your diet or the dose of your diabetic medicine. You have been given the following additional information: COPD Flare Azithromycin Oral tablet Prednisone Oral tablet (Electronically signed by Jr Cullen Dr. 12/22/2016 20:43)
--- NOTE | 2016-12-22 20:43 | ED MED RECONCILIATION SUMMARY ---
Patient: LUI SULLIVAN Medication Reconciliation Report [facility] VisitID: [id number] [address] [place] [address] 81y, M Registration Date/Time: 12/21/2016 Weight: 58.9 kg Height/Length: 64 in. BMI: 22.3 ALLERGIES: Nitrofurantoin The patient's Home Medications are listed below: CONTINUE TAKING THE FOLLOWING MEDICATIONS: Acetaminophen Oral 1,000 mg, 4x a day Alendronate Sodium Oral (70 mg) 1 tablet, weekly Donepezil HCl Oral (5 mg), daily Folic Acid Oral 1 mg, daily Hydrocodone-Acetaminophen Oral 7.5 mg Ipratropium-Albuterol Inhalation (0.5-2.5 (3) mg/3mL) 3ml, every 4 hrs PRN Metoprolol Tartrate Oral 12.5 mg, 2 x day Multivitamin Oral 1 tab, daily Omeprazole Oral 20 mg, daily Oxygen at 2 LPM Qvar Inhalation (40 mcg/act) 2 puffs , 2 x daily Tricia-Bid Probiotic Oral Vitamin B-1 day The source(s) of the original Home Medication information: List from previous visit. The following Medications were given to the patient in the Emergency Department: Prednisone [PO] PO 40 mg, administered: 12/21/2016 5:13:00 PM Duoneb [Neb Tx] Neb TX 1 unit dose, administered: 12/21/2016 5:02:00 PM Azithromycin [PO] PO 500 mg, administered: 12/21/2016 8:31:00 PM The following Medications were prescribed to the patient: Zithromax 250 mg tablets: take 1 orally every day for 4 days. Total course 4 days. No refills. Substitution is permissible.(Loading dose given in the ED) -- Jr Cullen Dr. Prednisone 20 mg: take 2 orally every day for 4 days. Dispense sufficient quantity. No refills.(Start on 12/22/16) -- Jr Cullen Dr.
--- NOTE | 2016-12-22 20:43 | ED MAR SUMMARY ---
..... Medication Administration Record [facility] [address] [place] [address] Patient: LUI SULLIVAN Visit ID: [id number] 81y, M Weight: 58.9 kg Height/Length: 64 in BMI: 22.3 ALLERGIES: Nitrofurantoin Given 17:02 12/21/2016 Scooby Cabrales R.N. Medication Administered: DUONEB [NEB TX] (IPRATROPIUM-ALBUTEROL), Dose: 1 unit dose Nebulizer Neb TX. Medication Ordered: DuoNeb Neb Tx 1 unit dose (NOW). Given 17:13 12/21/2016 Frida Sharma, Medication Administered: PREDNISONE [PO], Dose: 40 mg Tablets PO. Medication Ordered: Prednisone PO 40 mg (NOW). Given 20:31 12/21/2016 Frida Sharma, Medication Administered: AZITHROMYCIN [PO], Dose: 500 mg Capsules PO. Medication Ordered: Azithromycin PO 500 mg (NOW).
== END 2016-12-21 20:54 | disposition home or self-care (01) ==
LOC: ED SRH 16:53
DX: J44.1 Chronic obstructive pulmonary disease with (acute) exacerbation (principal); E78.5 Hyperlipidemia, unspecified; I10 Essential (primary) hypertension; Z79.899 Other long term (current) drug therapy; Z87.891 Personal history of nicotine dependence; Z88.1 Allergy status to other antibiotic agents
CPT/HCPCS: 90074; 90100; 90616; 91556; 92610; 92720; 95059